=== PATIENT | male | born 1965 | race Caucasian/White ===

== ENCOUNTER 2020-09-06 14:13 | Emergency (ER) | payer MEDICAID, SELFPAY ==
[2020-09-06] VITALS (13 sets, daily range): BP systolic 88–145; BP diastolic 56–91; PULSE 110–145; RESP 14–29; O2SAT 93–97; BMI 27.2
--- NOTE | 2020-09-06 14:53 | ECG_ITS ---
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 Measurements Intervals [place] Rate: 145 P: RI: QRS: 24 QRSD: 199 T: 56 QT: 356 QTc: 555 Interpretive Statements ATRIAL FLUTTER WITH RAPID VENTRICULAR RESPONSE INTRAVENTRICULAR CONDUCTION DELAY [130+ ms QRS DURATION] No previous ECG available for comparison Electronically Signed On 09-07-2020 17:41:34 EDGER TECHNICIAN by Melo Emery M.D. [id number] f
--- NOTE | 2020-09-06 14:53 | XR_ITS ---
WS: [id number] Exam: XR chest 1V portable [id number] Date/Time of Exam: 09/06/2020 2:54 PM Reason For Exam: dyspnea/cough Comparison 08/15/2006. Findings: The lungs are clear and fully expanded. Costophrenic angles are sharp. No infiltrates. Bronchovascula r relief appears normal. Cardiac silhouette is unremarkable. Bony elements are intact. XR/XR chest 1V portable [id number] IMPRESSION: Unremarkable chest radiograph.
[2020-09-06 15:05] LABS: Basophils # 0.1 10^3/uL (0.0-0.1); Basophils % 0.5 %; Eosinophils % 0.2 %; Hematocrit 53.2 % (42.0-52.0); Hemoglobin 18.2 g/dL (11.7-16.6); Lymphocytes # 1.8 10^3/uL (0.8-4.8); Lymphocytes % 16.9 %; Mean Corpuscular HGB Conc 34.2 g/dL (30.0-36.0); Mean Corpuscular Hemoglobin 31.4 pg (28.0-34.0); Mean Corpuscular Volume 91.9 fL (80-94); Mean Platelet Volume 10.3 fL (7.4-10.4); Monocytes # 1.3 10^3/uL (0.2-0.9); Neutrophils # 7.57 10^3/uL (1.8-7.7); Neutrophils % 70.1 %; Nucleated Red Blood Cells % 0 %; Platelet Count 215 10^3/cmm (130-400); Red Blood Count 5.79 10^6/uL (4.1-5.3); Red Cell Distribution Width 12.2 % (12.1-15.1); White Blood Count 10.8 10^3/uL (4.0-10.0)
--- NOTE | 2020-09-06 15:06 | W.ED.ARRPALP ---
Documented by User: George Mills DO 09/07/20 10:59 HPI - Arrhythmia/Palpitations General: Chief Complaint: Arrhythmia/Palpitations Stated Complaint: Back Pain/SOB/dizziness Time Seen by Provider: 09/06/20 14:52 History of Present Illness: HPI narrative: 55-year-old male presents emergency room palpitation racing heart rate. He has had this intermittently for sometimes difficult to get him to give a precise history. He states this time however it seemed more intense and more bothersome. In several years ago patient was treated for atrial fibrillation although when I discussed specific medications with him not sure that is exactly what he had. Does sound like he was on metoprolol at one point. He did have angiogram done. He has not been on any chronic anticoagulants. Denies chest pain at this time states he feels very tired easily fatigued does have some mild orthopnea. MD complaint: rapid heart beat, heart racing and irregular heart beat Onset (ago): unknown Duration: intermittent Severity: moderate Context: occurred during rest Arrhythmia history: atrial fibrillation Associated symptoms: Deny anxiety, cough, diaphoresis, muscle cramps, nausea, paresthesias, pre-syncope, sense of impending doom, short of breath, syncope or vomiting Review of Systems Const: Denies: diaphoresis ENMT: Denies: throat pain, ear or mastoid pain, nasal discharge or nasal congestion Card: Denies: syncope or pre-syncope Resp: Denies: dyspnea, productive cough or non-productive cough GI: Denies: nausea or vomiting : Denies: flank pain, dysuria, urinary frequency or urinary urgency Musc: Denies: muscle cramps Skin/Breast: Denies: rash or pruritus Psych: Denies: anxiety Physical Exam Const: COMMON NORMALS: no acute distress GENERAL APPEARANCE: cooperative and comfortable ORIENTATION/CONSCIOUSNESS: Yes awake, Yes oriented to person, Yes oriented to place and Yes oriented to time HENMT: COMMON NORMALS: normocephalic, atraumatic and hearing grossly normal bilaterally HEAD & SCALP: normocephalic and atraumatic Resp: COMMON NORMALS: normal respiratory effort, No retractions, No use of accessory muscles and clear to auscultation bilaterally AUSCULTATION: clear to auscultation bilaterally Cardio: COMMON NORMALS: No murmurs present (Cardio) RATE: tachycardic RHYTHM: abnormal rhythm irregularly irregular GI: COMMON NORMALS: Soft to palpation and No hepatosplenomegaly present AUSCULTATION: Yes normoactive bowel sounds PALPATION: Yes Soft to palpation, No Tenderness to palpation present (GI), No Guarding due to palpation present (GI) and Yes No hepatosplenomegaly present Extremity: COMMON NORMALS: normal to inspection, capillary refill normal, no clubbing, cyanosis or edema, no calf tenderness and no pedal edema Neuro: SENSORIUM/ORIENTATION: Yes oriented to person, Yes oriented to place and Yes oriented to time Skin: COMMON NORMALS: no rashes or lesions noted GENERAL SKIN EXAM: no rashes or lesions noted Course Vital Signs: Vital signs: Vital Signs Pulse Rate 105 H 09/07/20 02:30 Respiratory Rate 18 09/07/20 02:30 Blood Pressure 139/93 09/07/20 02:30 Pulse Oximetry 98 09/07/20 02:30 MDM - Arrhythmia/Palpitations MDM Narrative: Medical decision making narrative: Patient has history of alcohol use believe he is withdrawing. He had previously been on medications but had stopped them all because of cost. He drinks over a 12 pack a day has not drank for almost 24 hours now. Initial attempts to slow heart rate with Cardizem were unsuccessful he was switched to esmolol and then given Ativan were able to get his heart rate down to less than 110. We are working on transfer care signed over to Dr. Adams at change of shift we are waiting on [facility] to call back to make arrangements for transfer. We do not have any beds available in our ICU so he will have to be transferred. Lab Data: Labs: Lab Results 09/06/20 09/06/20 09/06/20 Range/Units 14:59 14:59 14:59 WBC 10.8 H (4.0-10.0) 10^3/ uL RBC 5.79 H (4.1-5.3) 10^6/u L Hgb 18.2 H (11.7-16.6) g/dL Hct 53.2 H (42.0-52.0) % MCV 91.9 (80-94) fL MCH 31.4 (28.0-34.0) pg MCHC 34.2 (30.0-36.0) g/dL RDW 12.2 (12.1-15.1) % Plt Count 215 (130-400) 10^3/c mm MPV 10.3 (7.4-10.4) fL Neut % (Auto) 70.1 % Lymph % (Auto) 16.9 % [place] % (Auto) 12.0 % Eos % (Auto) 0.2 % Baso % (Auto) 0.5 % Neut # (Auto) 7.57 (1.8-7.7) 10^3/u L Lymph # (Auto) 1.8 (0.8-4.8) 10^3/u L [place] # (Auto) 1.3 H (0.2-0.9) 10^3/u L Eos # (Auto) 0.0 (0.0-0.8) 10^3/u L Baso # (Auto) 0.1 (0.0-0.1) 10^3/u L Nucleated RBC % (a uto) 0 % Nucleated RBCs # 0.0 /100WBC PT (12.1-14.9) SECO NDS INR (0.8-1.2) APTT (23.9-36.7) SECO NDS Sodium 134 L (136-145) mmol/L Potassium 4.6 (3.5-5.1) mmol/L Chloride 95 L (98-107) mmol/L Carbon Dioxide 23 (22-29) mmol/L Anion Gap 20.6 H (5-19) BUN 19 (6-20) mg/dL Creatinine 1.8 H (0.7-1.2) mg/dL GFR Calculation 39.4 L (90-130) mL/min Glucose 103 (65-115) mg/dL Calculated Osmolal ity 281 L (285-295) mOsm/k g Calcium 9.8 (8.5-10.5) mg/dL Total Bilirubin 1.5 H (0.15-1.2) mg/dL AST 50 H (0-40) U/L ALT 89 H (0-41) U/L Alkaline Phosphata se 43 (40-130) IU/L Troponin T Baselin e 96 H (0-15) ng/L Troponin T 120 Min [place]hoe (0-15) ng/L Delta Troponin T (0-10) ABS# Troponin T Hi Sens 6Hr (0-15) ng/L Troponin T Hi Sens 6Hr Delta (0-12) ng/L Total Protein 8.3 (6.6-8.7) g/dL Albumin 5.0 (3.5-5.2) g/dL Globulin 3.3 (1.3-4.6) g/dL TSH (0.27-4.20) uIU/ mL Free T4 (0.82-1.77) ng/d L 09/06/20 09/06/20 09/06/20 Range/Units 14:59 14:59 17:06 WBC (4.0-10.0) 10^3/ uL RBC (4.1-5.3) 10^6/u L Hgb (11.7-16.6) g/dL Hct (42.0-52.0) % MCV (80-94) fL MCH (28.0-34.0) pg MCHC (30.0-36.0) g/dL RDW (12.1-15.1) % Plt Count (130-400) 10^3/c mm MPV (7.4-10.4) fL Neut % (Auto) % Lymph % (Auto) % [place] % (Auto) % Eos % (Auto) % Baso % (Auto) % Neut # (Auto) (1.8-7.7) 10^3/u L Lymph # (Auto) (0.8-4.8) 10^3/u L [place] # (Auto) (0.2-0.9) 10^3/u L Eos # (Auto) (0.0-0.8) 10^3/u L Baso # (Auto) (0.0-0.1) 10^3/u L Nucleated RBC % (a uto) % Nucleated RBCs # /100WBC PT 14.90 (12.1-14.9) SECO NDS INR 1.13 (0.8-1.2) APTT 26.2 (23.9-36.7) SECO NDS Sodium (136-145) mmol/L Potassium (3.5-5.1) mmol/L Chloride (98-107) mmol/L Carbon Dioxide (22-29) mmol/L Anion Gap (5-19) BUN (6-20) mg/dL Creatinine (0.7-1.2) mg/dL GFR Calculation (90-130) mL/min Glucose (65-115) mg/dL Calculated Osmolal ity (285-295) mOsm/k g Calcium (8.5-10.5) mg/dL Total Bilirubin (0.15-1.2) mg/dL AST (0-40) U/L ALT (0-41) U/L Alkaline Phosphata se (40-130) IU/L Troponin T Baselin e (0-15) ng/L Troponin T 120 Min washoe 77.18 H (0-15) ng/L Delta Troponin T -18.82 L (0-10) ABS# Troponin T Hi Sens 6Hr (0-15) ng/L Troponin T Hi Sens 6Hr Delta (0-12) ng/L Total Protein (6.6-8.7) g/dL Albumin (3.5-5.2) g/dL Globulin (1.3-4.6) g/dL TSH 3.36 (0.27-4.20) uIU/ mL Free T4 1.56 (0.82-1.77) ng/d L 09/06/20 Range/Units 20:49 WBC (4.0-10.0) 10^3/ uL RBC (4.1-5.3) 10^6/u L Hgb (11.7-16.6) g/dL Hct (42.0-52.0) % MCV (80-94) fL MCH (28.0-34.0) pg MCHC (30.0-36.0) g/dL RDW (12.1-15.1) % Plt Count (130-400) 10^3/c mm MPV (7.4-10.4) fL Neut % (Auto) % Lymph % (Auto) % [place] % (Auto) % Eos % (Auto) % Baso % (Auto) % Neut # (Auto) (1.8-7.7) 10^3/u L Lymph # (Auto) (0.8-4.8) 10^3/u L [place] # (Auto) (0.2-0.9) 10^3/u L Eos # (Auto) (0.0-0.8) 10^3/u L Baso # (Auto) (0.0-0.1) 10^3/u L Nucleated RBC % (a uto) % Nucleated RBCs # /100WBC PT (12.1-14.9) SECO NDS INR (0.8-1.2) APTT (23.9-36.7) SECO NDS Sodium (136-145) mmol/L Potassium (3.5-5.1) mmol/L Chloride (98-107) mmol/L Carbon Dioxide (22-29) mmol/L Anion Gap (5-19) BUN (6-20) mg/dL Creatinine (0.7-1.2) mg/dL GFR Calculation (90-130) mL/min Glucose (65-115) mg/dL Calculated Osmolal ity (285-295) mOsm/k g Calcium (8.5-10.5) mg/dL Total Bilirubin (0.15-1.2) mg/dL AST (0-40) U/L ALT (0-41) U/L Alkaline Phosphata se (40-130) IU/L Troponin T Baselin e (0-15) ng/L Troponin T 120 Min [place] (0-15) ng/L Delta Troponin T (0-10) ABS# Troponin T Hi Sens 6Hr 63.57 H (0-15) ng/L Troponin T Hi Sens 6Hr Delta -32.43 L (0-12) ng/L Total Protein (6.6-8.7) g/dL Albumin (3.5-5.2) g/dL Globulin (1.3-4.6) g/dL TSH (0.27-4.20) uIU/ mL Free T4 (0.82-1.77) ng/d L EKG Data^: EKG 1: Other EKG comments: Chest X-Ray 09/06/20 14:53 IMPRESSION: Unremarkable chest radiograph. Discharge Plan Discharge Patient Disposition: Xfer Other Clinical Impression: Atrial fibrillation, Chronic alcohol abuse Condition: Stable Coding Level of Care Code ED Full Service Supervisor for Chg Fwd Exam Comprehensive Documented by User: Lida Adams MD 09/07/20 00:40 HPI - Arrhythmia/Palpitations General: Chief Complaint: Arrhythmia/Palpitations Stated Complaint: Back Pain/SOB/dizziness Time Seen by Provider: 09/06/20 14:52 Course Vital Signs: Vital signs: Vital Signs Pulse Rate 105 H 09/07/20 02:30 Respiratory Rate 18 09/07/20 02:30 Blood Pressure 139/93 09/07/20 02:30 Pulse Oximetry 98 09/07/20 02:30 MDM - Arrhythmia/Palpitations MDM Narrative: Medical decision making narrative: Patient presents here with Za. eloy with RVR I took patient over from Dr. Cerrato. Dr. Cerrato's spoke to [facility] for a possible transfer. The physician there called back and is excepting the patient. Patient transferred there due to bed availability as we have no ICU or CSU beds at this time. Patient is stable here and his heart rate is improving. Lab Data: Labs: Lab Results 09/06/20 09/06/20 09/06/20 Range/Units 14:59 14:59 14:59 WBC 10.8 H (4.0-10.0) 10^3/ uL RBC 5.79 H (4.1-5.3) 10^6/u L Hgb 18.2 H (11.7-16.6) g/dL Hct 53.2 H (42.0-52.0) % MCV 91.9 (80-94) fL MCH 31.4 (28.0-34.0) pg MCHC 34.2 (30.0-36.0) g/dL RDW 12.2 (12.1-15.1) % Plt Count 215 (130-400) 10^3/c mm MPV 10.3 (7.4-10.4) fL Neut % (Auto) 70.1 % Lymph % (Auto) 16.9 % [place] % (Auto) 12.0 % Eos % (Auto) 0.2 % Baso % (Auto) 0.5 % Neut # (Auto) 7.57 (1.8-7.7) 10^3/u L Lymph # (Auto) 1.8 (0.8-4.8) 10^3/u L [place] # (Auto) 1.3 H (0.2-0.9) 10^3/u L Eos # (Auto) 0.0 (0.0-0.8) 10^3/u L Baso # (Auto) 0.1 (0.0-0.1) 10^3/u L Nucleated RBC % (a uto) 0 % Nucleated RBCs # 0.0 /100WBC PT (12.1-14.9) SECO NDS INR (0.8-1.2) APTT (23.9-36.7) SECO NDS Sodium 134 L (136-145) mmol/L Potassium 4.6 (3.5-5.1) mmol/L Chloride 95 L (98-107) mmol/L Carbon Dioxide 23 (22-29) mmol/L Anion Gap 20.6 H (5-19) BUN 19 (6-20) mg/dL Creatinine 1.8 H (0.7-1.2) mg/dL GFR Calculation 39.4 L (90-130) mL/min Glucose 103 (65-115) mg/dL Calculated Osmolal ity 281 L (285-295) mOsm/k g Calcium 9.8 (8.5-10.5) mg/dL Total Bilirubin 1.5 H (0.15-1.2) mg/dL AST 50 H (0-40) U/L ALT 89 H (0-41) U/L Alkaline Phosphata se 43 (40-130) IU/L Troponin T Baselin e 96 H (0-15) ng/L Troponin T 120 Min [place] (0-15) ng/L Delta Troponin T (0-10) ABS# Troponin T Hi Sens 6Hr (0-15) ng/L Troponin T Hi Sens 6Hr Delta (0-12) ng/L Total Protein 8.3 (6.6-8.7) g/dL Albumin 5.0 (3.5-5.2) g/dL Globulin 3.3 (1.3-4.6) g/dL TSH (0.27-4.20) uIU/ mL Free T4 (0.82-1.77) ng/d L 09/06/20 09/06/20 09/06/20 Range/Units 14:59 14:59 17:06 WBC (4.0-10.0) 10^3/ uL RBC (4.1-5.3) 10^6/u L Hgb (11.7-16.6) g/dL Hct (42.0-52.0) % MCV (80-94) fL MCH (28.0-34.0) pg MCHC (30.0-36.0) g/dL RDW (12.1-15.1) % Plt Count (130-400) 10^3/c mm MPV (7.4-10.4) fL Neut % (Auto) % Lymph % (Auto) % [place] % (Auto) % Eos % (Auto) % Baso % (Auto) % Neut # (Auto) (1.8-7.7) 10^3/u L Lymph # (Auto) (0.8-4.8) 10^3/u L [place] # (Auto) (0.2-0.9) 10^3/u L Eos # (Auto) (0.0-0.8) 10^3/u L Baso # (Auto) (0.0-0.1) 10^3/u L Nucleated RBC % (a uto) % Nucleated RBCs # /100WBC PT 14.90 (12.1-14.9) SECO NDS INR 1.13 (0.8-1.2) APTT 26.2 (23.9-36.7) SECO NDS Sodium (136-145) mmol/L Potassium (3.5-5.1) mmol/L Chloride (98-107) mmol/L Carbon Dioxide (22-29) mmol/L Anion Gap (5-19) BUN (6-20) mg/dL Creatinine (0.7-1.2) mg/dL GFR Calculation (90-130) mL/min Glucose (65-115) mg/dL Calculated Osmolal ity (285-295) mOsm/k g Calcium (8.5-10.5) mg/dL Total Bilirubin (0.15-1.2) mg/dL AST (0-40) U/L ALT (0-41) U/L Alkaline Phosphata se (40-130) IU/L Troponin T Baselin e (0-15) ng/L Troponin T 120 Min [place] 77.18 H (0-15) ng/L Delta Troponin T -18.82 L (0-10) ABS# Troponin T Hi Sens 6Hr (0-15) ng/L Troponin T Hi Sens 6Hr Delta (0-12) ng/L Total Protein (6.6-8.7) g/dL Albumin (3.5-5.2) g/dL Globulin (1.3-4.6) g/dL TSH 3.36 (0.27-4.20) uIU/ mL Free T4 1.56 (0.82-1.77) ng/d L 09/06/20 Range/Units 20:49 WBC (4.0-10.0) 10^3/ uL RBC (4.1-5.3) 10^6/u L Hgb (11.7-16.6) g/dL Hct (42.0-52.0) % MCV (80-94) fL MCH (28.0-34.0) pg MCHC (30.0-36.0) g/dL RDW (12.1-15.1) % Plt Count (130-400) 10^3/c mm MPV (7.4-10.4) fL Neut % (Auto) % Lymph % (Auto) % [place] % (Auto) % Eos % (Auto) % Baso % (Auto) % Neut # (Auto) (1.8-7.7) 10^3/u L Lymph # (Auto) (0.8-4.8) 10^3/u L [place] # (Auto) (0.2-0.9) 10^3/u L Eos # (Auto) (0.0-0.8) 10^3/u L Baso # (Auto) (0.0-0.1) 10^3/u L Nucleated RBC % (a uto) % Nucleated RBCs # /100WBC PT (12.1-14.9) SECO NDS INR (0.8-1.2) APTT (23.9-36.7) SECO NDS Sodium (136-145) mmol/L Potassium (3.5-5.1) mmol/L Chloride (98-107) mmol/L Carbon Dioxide (22-29) mmol/L Anion Gap (5-19) BUN (6-20) mg/dL Creatinine (0.7-1.2) mg/dL GFR Calculation (90-130) mL/min Glucose (65-115) mg/dL Calculated Osmolal ity (285-295) mOsm/k g Calcium (8.5-10.5) mg/dL Total Bilirubin (0.15-1.2) mg/dL AST (0-40) U/L ALT (0-41) U/L Alkaline Phosphata se (40-130) IU/L Troponin T Baselin e (0-15) ng/L Troponin T 120 Min washoe (0-15) ng/L Delta Troponin T (0-10) ABS# Troponin T Hi Sens 6Hr 63.57 H (0-15) ng/L Troponin T Hi Sens 6Hr Delta -32.43 L (0-12) ng/L Total Protein (6.6-8.7) g/dL Albumin (3.5-5.2) g/dL Globulin (1.3-4.6) g/dL TSH (0.27-4.20) uIU/ mL Free T4 (0.82-1.77) ng/d L EKG Data^: EKG 1: Attestation: I personally reviewed and interpreted this EKG as follows: EKG interpretation date: 09/06/20 EKG interpretation time: 18:54 Interpretation: afib with rvr hr [address] or t wave abnormalities qrs 94 qtc 362 Other EKG comments: Chest X-Ray 09/06/20 14:53
[2020-09-06 15:30] LABS: Alanine Aminotransferase 89 U/L (0-41); Alkaline Phosphatase 43 IU/L (40-130); Aspartate Amino Transferase 50 U/L (0-40); Blood Urea Nitrogen 19 mg/dL (6-20); Calcium 9.8 mg/dL (8.5-10.5); Carbon Dioxide 23 mmol/L (22-29); Chloride 95 mmol/L (98-107); Globulin 3.3 g/dL (1.3-4.6); Glomerular Filtration Rate 39.4 mL/min (90-130); Glucose 103 mg/dL (65-115); Osmolality Calculated 281 mOsm/kg (285-295); Sodium 134 mmol/L (136-145); Total Bilirubin 1.5 mg/dL (0.15-1.2); Total Protein 8.3 g/dL (6.6-8.7); Troponin(5th) Baseline 96 ng/L (0-15)
[2020-09-06 15:31] LABS: Anion Gap 20.6 (5-19); Potassium 4.6 mmol/L (3.5-5.1)
[2020-09-06] MEDS: esmolol drip 2,500 MG/250 ML PREMIX 25.9 MG IV (16:10)
--- NOTE | 2020-09-06 16:13 | PC.NURSE ---
500mcg bolus of Esmolol given via VO from Dr Mills. Given off of IV drip.
--- NOTE | 2020-09-06 16:22 | PC.PHAR ---
Pt has not taken medications in several years. Patient's previous pharmacy and heart care services have no records of previous visits. [facility] shows records from 2012 with medications: metoprolol 50mg 1/2 (25mg) BID, asp 81mg daily, lovastatin 10mg daily, nitro 0.4mg PRN, lisinopril/HCTZ 20-12.5mg daily.
[2020-09-06] MEDS: LORazepam 2 mg/mL INJ 1 mL IVP (16:24)
[2020-09-06 16:43] LABS: Free T4 Free Thyroxine 1.56 ng/dL (0.82-1.77); Thyroid Stimulating Hormone 3.36 uIU/mL (0.27-4.20)
--- NOTE | 2020-09-06 16:53 | ECG_ITS ---
[facility] Test Date: 2020-09-06 Pat Name: Samuel Meier Department: Room: Gender: Male Insurance Account Assistant: : 1965 Requested By: George Duggan Order Number: [id number] Liang MD: Lori Smith M.D. Measurements Intervals [place] Rate: 126 P: TX: QRS: 53 QRSD: 94 T: 61 QT: 288 QTc: 417 Interpretive Statements ATRIAL FLUTTER/TACHYCARDIA WITH RAPID VENTRICULAR RESPONSE MODERATE ST DEPRESSION [0.05+ mV ST DEPRESSION] Compared to ECG 09/06/2020 14:50:10 ST (T wave) deviation now present Atrial fibrillation no longer present Intraventricular conduction delay no longer present Myocardial infarct finding no longer present Electronically Signed On 09-07-2020 6:06:32 ASPHALT BLENDER by Lori Smith M.D. [email or web address] river county hospitalNatera, Inc.[facility].[employer]/store/[id number]
[2020-09-06 17:08] LABS: INR 1.13 (0.8-1.2)
[2020-09-06 17:09] LABS: Partial Thromboplastin Time 26.2 SECONDS (23.9-36.7)
[2020-09-06] MEDS: sodium chloride 0.9% 1,000 ML 999 ML IV ×2 (17:38→23:46)
[2020-09-06 17:52] LABS: Troponin 5 2HR 77.18 ng/L (0-15)
[2020-09-06] MEDS: esmolol drip 2,500 MG/250 ML PREMIX 77.6 MG IV (21:04)
[2020-09-06 21:13] LABS: Troponin 5 6HR 63.57 ng/L (0-15)
[2020-09-07] VITALS (11 sets, daily range): BP systolic 101–146; BP diastolic 64–111; PULSE 105–132; RESP 15–29; O2SAT 94–99
[2020-09-07] MEDS: sodium chloride 0.9% 1,000 ML 999 ML IV (01:20)
--- NOTE | 2020-09-07 07:35 | DCPLANNER ---
late entry - case manager specialist was asked to see patient due to financial reasons. Patient asked case manager specialist about getting help applying for medicaid. logistics account manager spoke with patient and let patient know that there was a person at the hospital named Raymond Desouza that will help patients apply for medicaid. logistics account manager tried to call Deo, unable to reach him at this time, an email was sent to Raymond Desouza with patients name and information asking him to help patient to apply for medicaid. Patient asked if when they called that they spoke with his sister, Vika Shultz, to help fill out paperwork because he gets confused. When case manager specialist sent email to [employer], it was mentioned for him to call the sister and her phone number was given. Sisters phone number is [phone].
== END 2020-09-07 02:32 | disposition other institution (70) ==
PROVIDERS: Family Medicine; Emergency Provider Emergency Medicine
DX: I48.91 Unspecified atrial fibrillation (principal); F10.10 Alcohol abuse, uncomplicated
CPT/HCPCS: 36415; 71045; 80053; 84439; 84443; 84484; 85025; 85610; 85730; 93005; 96365; 96366; 96367; 99285; J2060; J3490; J7030

== ENCOUNTER 2021-02-14 09:53 | Outpatient (CLI) | payer MEDICAID, SELFPAY ==
--- NOTE | 2021-02-14 10:10 | USCV_ITS ---
Samuel Meier Age: 55 Gender: M : 1965 Exam Date: 02/14/2021 10:25 Ordering Phys: Liz Dejesus MANAGER STRATEGIC DEVELOPMENT MANAGER STRATEGIC DEVELOPMENT Technologist: Delilah Ann Exam Location: [facility] [place]_ Indication: Atrial fibrillation BP: 135 / 75 HR: 80 Rhythm: Sinus Technical Quality: Adequate MEASUREMENTS (Male / Female) Normal Values 2D ECHO LV Diastolic Diameter PLAX 4.2 cm 4.2 - 5.9 / 3.9 - 5.3 cm LV Systolic Diameter PLAX 3.4 cm IVS Diastolic Thickness 1.8 cm 0.6 - 1.0 / 0.6 - 0.9 cm IVS Systolic Thickness 2.5 cm LVPW Diastolic Thickness 1.7 cm 0.6 - 1.0 / 0.6 - 0.9 cm LVPW Systolic Thickness 2.1 cm LVOT Diameter 2.0 cm LV Ejection Fraction 2D Teich 40.1 % LV Ejection Fraction MOD 2C 45.5 % LV Ejection Fraction 2C AL 42.9 % LA Diameter 3.7 cm LA Width 3.5 cm LA Height 5.3 cm RA Width 4.5 cm RA Height 5.3 cm Aorta at Sinotubular Diameter 2.5 cm DOPPLER AV Peak Velocity 188.0 cm/s LVOT Peak Velocity 134.0 cm/s AV Area Cont Eq vti 2.4 cm squared AV Area Cont Eq pk 2.3 cm squared MV Peak Velocity 110.0 cm/s MV Area PHT 3.3 cm squared Mitral E to A Ratio 0.8 MV E' Velocity 40.0 cm/s Mitral E to MV E' Ratio 6.1 Mitral E to LV E' Lateral Ratio 4.8 Mitral E to LV E' Septal Ratio 8.7 TR Peak Velocity 239.9 cm/s TR Peak Gradient 23.0 mmHg TR Mean Velocity 186.7 cm/s TR Mean Gradient 14.7 mmHg TR Velocity Time Integral 59.9 cm TV Peak E Velocity 43.0 cm/s Right Atrial Pressure 3.0 mmHg Pulmonary Artery Systolic Pressu 26.0 mmHg PV Peak Velocity 119.0 cm/s RV Acceleration Time 0.0 s RV Ejection Time 0.3 s RV AcT/ET 0.1 FINDINGS Left Ventricle Normal left ventricular size, systolic function and wall thickness, with no regional wall motion abnormalities. Left ventricular ejection fraction is estimated at 65 %. Normal diastolic function. Right Ventricle Normal right ventricular size and systolic function. RVSP could not be calculated due to incomplete tricuspid regurgitation velocity profile. Right Atrium Normal right atrial size. Right atrial pressure estimated at 3 mmHg. Left Atrium Normal left atrial size. Mitral Valve Structurally normal mitral valve. No mitral valve stenosis. No mitral valve regurgitation. Aortic Valve Mildly thickened trileaflet aortic valve. No aortic valve stenosis. Gymf-po-dbjzmhjz aortic valve regurgitation. Tricuspid Valve Structurally normal tricuspid valve. No tricuspid valve stenosis. Trace tricuspid valve regurgitation. Pulmonic Valve Structurally normal pulmonic valve. No pulmonary valve stenosis. No pulmonary valve regurgitation. Pericardium No pericardial effusion. Aorta Normal size aortic root and proximal ascending aorta. Normal- sized inferior vena cava with normal respiratory variation. CONCLUSIONS 1. Normal left ventricular size, systolic function and wall thickness, with no regional wall motion abnormalities. Left ventricular ejection fraction is estimated at 65 %. Normal diastolic function. 2. Normal right ventricular size and systolic function. 3. Pwfm-zv-tphnekrm aortic valve regurgitation. 4. Right atrial pressure estimated at 3 mmHg. 5. No prior similar studies to compare. Lori Smith MD (Electronically Signed) Final Date: 16 February 2021 14:13 S
== END 2021-02-14 09:54 | disposition home or self-care (01) ==
PROVIDERS: PCP Nurse Practitioner Family; Visit Provider Nurse Practitioner Family
DX: I48.19 Other persistent atrial fibrillation (principal); I35.1 Nonrheumatic aortic (valve) insufficiency
CPT/HCPCS: 93306

== ENCOUNTER 2021-03-11 13:12 | Outpatient (CLI) | payer MEDICAID, SELFPAY ==
--- NOTE | 2021-03-11 13:16 | CT_ITS ---
WS: [id number] LDCT LUNG CANCER SCREENING HISTORY: History of Nicotine Dependence TECHNIQUE: Axial imaging performed from the apices to 1 cm below the costophrenic angles. Coronal and sagittal reformats are submitted with axial MIP series. All CT scans at [facility] use at least one of these dose optimization techniques: automated exposure control; mA and/or kV adjustment per patient size (includes targeted exams where dose is matched to clinical indication); or iterativ e reconstruction. DLP: 56.56 mGy.cm DIvol: 1.58 mGy COMPARISON: None available. Diagnostic quality: Satisfactory Lung Nodules: None. Lungs: Emphysema and hyperexpansion. Heart: Normal size. No effusion. Other findings: Calcified mediastinal and LEFT hilar lymph nodes. Very minimal atherosclerosis aorta. Normal size pulmonary artery. CT/CT lung screening [id number] IMPRESSION: LUNG-RADS: 1-Negative FOLLOW UP: 12 Month: Continue annual screening with LDCT OTHER FINDINGS (S MODIFIER): None.
== END 2021-03-11 13:13 | disposition home or self-care (01) ==
LOC: RAD 13:14
PROVIDERS: PCP Nurse Practitioner Family; Visit Provider Internal Medicine Pulmonary Disease
DX: Z12.2 Encounter for screening for malignant neoplasm of respiratory organs (principal); Z87.891 Personal history of nicotine dependence
CPT/HCPCS: 71271

== ENCOUNTER → 2021-04-01 10:27 | Outpatient (BNVA) | payer MEDICAID, SELFPAY | PROVIDERS: PCP Nurse Practitioner Family; Visit Provider Internal Medicine Pulmonary Disease | DX: Z01.812 Encounter for preprocedural laboratory examination (principal); Z20.822 Contact with and (suspected) exposure to COVID-19 | CPT/HCPCS: 87635 ==

== ENCOUNTER 2021-04-06 10:27 | Outpatient (CLI) | payer MEDICAID, SELFPAY ==
--- NOTE | 2021-04-06 11:04 | PFTS_ITS ---
Date of Study:04/06/21 Date of Dictation: MECHANICS: Forced vital capacity (FVC) is normal. Forced expiratory volume in one second (FEV1) is normal. FEV1/FVC is normal. FLOW VOLUME LOOP: Reduced flow at all lung volumes. LUNG VOLUMES: Total lung capacity (TLC) is normal. Residual volume (RV) is increased. DIFFUSING CAPACITY FOR CARBON MONOXIDE: Normal. INTERPRETATION: The prebronchodilator spirometry is consistent with moderate obstruction. The postbronchodilator spirometry is normal. There is an improvement in FEV1 postbronchodilator but this does not reach the cutoff for significant postbronchodilator response. Lung volumes are consistent with air trapping. Gas exchange (DLCO) is normal. MTDD
== END 2021-04-06 10:28 | disposition home or self-care (01) ==
LOC: RT 10:29
PROVIDERS: PCP Nurse Practitioner Family; Visit Provider Internal Medicine Pulmonary Disease
DX: J44.9 Chronic obstructive pulmonary disease, unspecified (principal)
CPT/HCPCS: 94060; 94618; 94726; 94729; J7611

== ENCOUNTER → 2021-05-31 09:41 | Outpatient (BNVA) | payer MEDICAID, SELFPAY | PROVIDERS: PCP Nurse Practitioner Family; Referring Provider Nurse Practitioner Family; Visit Provider Anesthesiology Pain Medicine | DX: Z02.89 Encounter for other administrative examinations (principal); G89.29 Other chronic pain; M19.90 Unspecified osteoarthritis, unspecified site; M54.50 Low back pain, unspecified; M16.0 Bilateral primary osteoarthritis of hip; Z87.891 Personal history of nicotine dependence | CPT/HCPCS: 99204 ==

== ENCOUNTER 2021-05-31 10:49 | Outpatient (CLI) | payer MEDICAID, SELFPAY ==
--- NOTE | 2021-05-31 10:58 | XR_ITS ---
WS: [id number] Exam: XR hip BI 3-4V wo/w pel [id number] Date/Time of Exam: 05/31/2021 11:02 AM Reason For Exam: M19.90 - Unspecified osteoarthritis, unspecified site No fracture or dislocation. Minimal degenerative narrowing of the joint compartments of both hips. Th e pattern is bilaterally symmetrical. Normal bilateral soft tissues. XR/XR hip BI 3-4V wo/w pel [id number] IMPRESSION: 1. Mild DJD of both hips. 2. No fracture or other significant finding.
== END 2021-05-31 10:50 | disposition home or self-care (01) ==
LOC: RAD 10:51
PROVIDERS: PCP Nurse Practitioner Family; Visit Provider Anesthesiology Pain Medicine
DX: M16.0 Bilateral primary osteoarthritis of hip (principal)
CPT/HCPCS: 73522

== ENCOUNTER 2021-06-23 09:12 | Outpatient (CLI) | payer MEDICAID, SELFPAY ==
--- NOTE | 2021-06-23 | CT_ITS ---
WS: [id number] CT LUMBAR SPINE TECHNIQUE: Noncontrast CT of the lumbar spine with coronal and sagittal reformatted images. CLINICAL INFORMATION: BACK PAIN COMPARISON: None. DLP: 1960.[address] scans at [facility] use at least one of these dose optimization techniques: automated e xposure control; mA and/or kV adjustment per patient size (includes targeted exams where dose is matc hed to clinical indication); or iterative reconstruction. FINDINGS: Mild lumbar curve. No acute compression. No high-grade central canal stenosis. L1-L2: Normal. L2-L3: Mild annular bulging. Small left foraminal protrusion with mild left foraminal narrowing. Spin al canal and right foramen are patent. L3-L4: Mild annular bulging. Slight effacement of ventral thecal sac. Mild left and no significant ri ght foraminal narrowing. Moderate facet arthropathy. L4-L5: Mild annular bulging with slight effacement of ventral thecal sac. Tiny shallow central disc b ulging. Narrowing of the subarticular recess bilaterally. Mild central canal stenosis. Foramen are pa tent. Moderate facet arthropathy L5-S1: Shallow central disc bulging with slight contact of the traversing left greater than right S1 nerve roots. Moderate facet arthropathy. Foramen are patent. Vascular calcification. CT/CT lumbar spine wo con* [id number] IMPRESSION: 1. Mild lumbar curve. No acute compression. No high-grade central canal stenos is. 2. Mild central canal stenosis L4-5 with impingement traversing L5 nerve roots bilaterally. 3. Central disc bulge L5-S1 impinges the traversing left greater than right S1 nerve roots. 4. Tiny foraminal protrusions with mild foraminal narrowing at left L2-3 and l eft L3-4.
== END 2021-06-23 09:13 | disposition home or self-care (01) ==
PROVIDERS: PCP Nurse Practitioner Family; Visit Provider Nurse Practitioner Family
DX: M51.26 Other intervertebral disc displacement, lumbar region (principal); M51.27 Other intervertebral disc displacement, lumbosacral region; M48.061 Spinal stenosis, lumbar region without neurogenic claudication
CPT/HCPCS: 72131

== ENCOUNTER → 2021-06-27 09:40 | Outpatient (BNVA) | payer MEDICAID, SELFPAY | PROVIDERS: PCP Nurse Practitioner Family; Visit Provider Anesthesiology Pain Medicine | DX: G89.29 Other chronic pain (principal); M54.50 Low back pain, unspecified; M16.0 Bilateral primary osteoarthritis of hip; I48.20 Chronic atrial fibrillation, unspecified; E78.5 Hyperlipidemia, unspecified; Z87.891 Personal history of nicotine dependence | CPT/HCPCS: 99214 ==

== ENCOUNTER → 2021-07-04 12:16 | Outpatient (BNVA) | payer MEDICAID, SELFPAY | PROVIDERS: PCP Nurse Practitioner Family; Visit Provider Anesthesiology Pain Medicine | DX: M47.816 Spondylosis without myelopathy or radiculopathy, lumbar region (principal) | CPT/HCPCS: 64493; 64494; 64495; J3490 ==

== ENCOUNTER → 2021-07-19 11:12 | Outpatient (BNVA) | payer MEDICAID, SELFPAY | PROVIDERS: PCP Nurse Practitioner Family; Visit Provider Anesthesiology Pain Medicine | DX: G89.29 Other chronic pain (principal); M54.50 Low back pain, unspecified; M16.0 Bilateral primary osteoarthritis of hip; I50.20 Unspecified systolic (congestive) heart failure; J44.9 Chronic obstructive pulmonary disease, unspecified | CPT/HCPCS: 99215 ==

== ENCOUNTER → 2021-07-27 12:13 | Outpatient (BNVA) | payer MEDICAID, SELFPAY | PROVIDERS: PCP Nurse Practitioner Family; Visit Provider Anesthesiology Pain Medicine | DX: G89.29 Other chronic pain (principal); Z87.891 Personal history of nicotine dependence; M47.816 Spondylosis without myelopathy or radiculopathy, lumbar region | CPT/HCPCS: 64635; 64636; J1030 ==

== ENCOUNTER → 2021-08-23 12:44 | Outpatient (BNVA) | payer MEDICAID, SELFPAY | PROVIDERS: PCP Nurse Practitioner Family; Visit Provider Anesthesiology Pain Medicine | DX: G89.29 Other chronic pain (principal); Z87.891 Personal history of nicotine dependence; M47.816 Spondylosis without myelopathy or radiculopathy, lumbar region | CPT/HCPCS: 64635; 64636; J1030 ==

== ENCOUNTER → 2021-09-06 10:28 | Outpatient (BNVA) | payer MEDICAID, SELFPAY | PROVIDERS: PCP Nurse Practitioner Family; Visit Provider Anesthesiology Pain Medicine | DX: G89.29 Other chronic pain (principal); M54.50 Low back pain, unspecified; M16.0 Bilateral primary osteoarthritis of hip; I50.20 Unspecified systolic (congestive) heart failure; J44.9 Chronic obstructive pulmonary disease, unspecified; Z87.891 Personal history of nicotine dependence | CPT/HCPCS: 99214 ==

== ENCOUNTER → 2021-11-10 09:46 | Outpatient (BNVA) | payer MEDICAID, SELFPAY | PROVIDERS: PCP Nurse Practitioner Family; Visit Provider Internal Medicine Pulmonary Disease | DX: R06.81 Apnea, not elsewhere classified (principal); I25.10 Atherosclerotic heart disease of native coronary artery without angina pectoris; I48.20 Chronic atrial fibrillation, unspecified; I50.20 Unspecified systolic (congestive) heart failure; J44.9 Chronic obstructive pulmonary disease, unspecified; R23.2 Flushing; Z87.891 Personal history of nicotine dependence; I10 Essential (primary) hypertension; E78.5 Hyperlipidemia, unspecified | CPT/HCPCS: 99214 ==

== ENCOUNTER 2021-11-29 13:17 | Outpatient (CLI) | payer MEDICAID, SELFPAY ==
--- NOTE | 2021-11-29 13:24 | CT_ITS ---
WS: [id number] LDCT LUNG CANCER SCREENING HISTORY: annual lung screening TECHNIQUE: Axial imaging performed from the apices to 1 cm below the costophrenic angles. Coronal and sagittal reformats are submitted with axial MIP series. All CT scans at [facility] use at least one of these dose optimization techniques: automated exposure control; mA and/or kV adjustment per patient size (includes targeted exams where dose is matched to clinical indication); or iterativ e reconstruction. DLP: 83.90 mGy.cm DIvol: Mean CTDIvol: 1.60 (mGy) COMPARISON: 03/11/2021 Diagnostic quality: Satisfactory Lung Nodules: No suspicious nodules or mass. No endobronchial lesions. Mild pulmonary hyperexpansion and emphysema. Heart: Normal size heart. No effusion. There are a few scattered coronary artery calcifications. Other findings: Benign calcified subcarinal and LEFT hilar lymph nodes. Normal size pulmonary artery. Minimal atherosclerosis aorta. No adenopathy. Artifact causing beam hardening in the soft tissues po sterior to the LEFT scapula. No destructive rib lesions. No adrenal mass. Visualized upper abdomen is negative. CT/CT lung screening [id number] IMPRESSION: LUNG-RADS: 1-Negative FOLLOW UP: 12 Month: Continue annual screening with LDCT OTHER FINDINGS (S MODIFIER): None.
== END 2021-11-29 13:18 | disposition home or self-care (01) ==
LOC: RAD 13:18
PROVIDERS: PCP Nurse Practitioner Family; Visit Provider Internal Medicine Pulmonary Disease
DX: Z12.2 Encounter for screening for malignant neoplasm of respiratory organs (principal); Z87.891 Personal history of nicotine dependence; G89.29 Other chronic pain; M51.17 Intervertebral disc disorders with radiculopathy, lumbosacral region; M16.0 Bilateral primary osteoarthritis of hip; I50.20 Unspecified systolic (congestive) heart failure; J44.9 Chronic obstructive pulmonary disease, unspecified
CPT/HCPCS: 71271; 99214

== ENCOUNTER → 2021-12-08 14:36 | Outpatient (BNVA) | payer MEDICAID, SELFPAY | PROVIDERS: PCP Nurse Practitioner Family; Visit Provider Anesthesiology Pain Medicine | DX: G89.29 Other chronic pain (principal); M54.16 Radiculopathy, lumbar region; Z87.891 Personal history of nicotine dependence | CPT/HCPCS: 64483; 64484; J1100; J3490 ==

== ENCOUNTER → 2021-12-22 10:27 | Outpatient (BNVA) | payer MEDICAID, SELFPAY | PROVIDERS: PCP Nurse Practitioner Family; Visit Provider Anesthesiology Pain Medicine | DX: G89.29 Other chronic pain (principal); M51.17 Intervertebral disc disorders with radiculopathy, lumbosacral region; M16.0 Bilateral primary osteoarthritis of hip; Z87.891 Personal history of nicotine dependence | CPT/HCPCS: 99213 ==

== ENCOUNTER → 2022-01-30 08:41 | Outpatient (BNVA) | payer MEDICAID, SELFPAY | PROVIDERS: PCP Nurse Practitioner Family; Visit Provider Anesthesiology Pain Medicine | DX: G89.29 Other chronic pain (principal); M51.17 Intervertebral disc disorders with radiculopathy, lumbosacral region; M16.0 Bilateral primary osteoarthritis of hip; I50.20 Unspecified systolic (congestive) heart failure; J44.9 Chronic obstructive pulmonary disease, unspecified; Z87.891 Personal history of nicotine dependence | CPT/HCPCS: 99214 ==

== ENCOUNTER → 2022-02-08 15:29 | Outpatient (BNVA) | payer MEDICAID, SELFPAY | PROVIDERS: PCP Nurse Practitioner Family; Visit Provider Internal Medicine Cardiovascular Disease | DX: I48.20 Chronic atrial fibrillation, unspecified (principal); I25.10 Atherosclerotic heart disease of native coronary artery without angina pectoris; I11.0 Hypertensive heart disease with heart failure; I50.32 Chronic diastolic (congestive) heart failure; I25.2 Old myocardial infarction; Z87.891 Personal history of nicotine dependence | CPT/HCPCS: 99213; 99214 ==

== ENCOUNTER 2022-03-07 09:23 | Emergency (ER) | payer MEDICAID, SELFPAY ==
[2022-03-07] VITALS (10 sets, daily range): BP systolic 109–139; BP diastolic 65–91; PULSE 78–91; RESP 15–23; TEMP 37.1; O2SAT 94–98; BMI 33.0
--- NOTE | 2022-03-07 09:40 | XRR_ITS ---
PROCEDURE INFORMATION: Exam: XR Chest Exam date and time: 03/07/2022 9:45 AM Age: 56 years old Clinical indication: Cough and dyspnea and shortness of breath; Additional info: Dyspnea/cough TECHNIQUE: Imaging protocol: Radiologic exam of the chest. Views: 1 view. COMPARISON: CR XR chest 1V portable [id number] 09/06/2020 2:51 PM FINDINGS: Lungs: There are normal lung volumes. Right basilar/costophrenic angle region airspace opacity is seen. This may represent pneumonia. Recommend follow-up until complete resolution to exclude underlying pathology. Unchanged 3 mm left upper lobe small metallic density is seen. Pleural spaces: There are no pleural effusions or pneumothorax. Heart/Mediastinum: The heart size is normal. The mediastinal contour is normal. The trachea is in the midline. Bones/joints: No acute abnormalities. Notes: Chest CT may be performed, if there is further clinical concern. XR/XR chest 1V portable [id number] IMPRESSION: Right basilar/costophrenic angle region airspace opacity. This may represent pneumonia. Recommend follow-up until complete resolution to exclude underlying pathology.
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
--- NOTE | 2022-03-07 10:01 | PC.PHAR ---
pt states he takes care of his own medications-pt states he never got the stiolto respimat written on 11/30/21-pt states he ran out of his spiriva handihaler about one to two months ago states just been using the combivent respimat-pt states he ran out of quetiapine 50mg about 3-4 days ago rx filled 02/13/22 14d/s-
[2022-03-07 10:19] LABS: Basophils % 0.2 %; Eosinophils % 0.2 %; Hematocrit 42.3 % (42.0-52.0); Hemoglobin 13.8 g/dL (11.7-16.6); Lymphocytes # 1.5 10^3/uL (0.8-4.8); Lymphocytes % 11.7 %; Mean Corpuscular HGB Conc 32.6 g/dL (30.0-36.0); Mean Corpuscular Hemoglobin 28.2 pg (28.0-34.0); Mean Corpuscular Volume 86.3 fl (80-94); Mean Platelet Volume 10.4 fL (7.4-10.4); Monocytes # 1.1 10^3/uL (0.2-0.9); Monocytes % 8.2 %; Neutrophils # 10.32 10^3/uL (1.8-7.7); Neutrophils % 79.2 %; Nucleated Red Blood Cells % 0 %; Platelet Count 358 10^3/cmm (130-400); Red Cell Distribution Width 12.4 % (12.1-15.1)
[2022-03-07 10:39] LABS: Alanine Aminotransferase 17 U/L (0-41); Albumin Level 3.9 g/dL (3.5-5.2); Alkaline Phosphatase 61 U/L (40-130); Aspartate Amino Transferase 11 U/L (0-40); Blood Urea Nitrogen 11 mg/dL (6-20); Calcium 9.1 mg/dL (8.5-10.5); Carbon Dioxide 23 mmol/L (22-29); Chloride 100 mmol/L (98-107); Globulin 3.8 g/dL (1.3-4.6); Glomerular Filtration Rate 116.7 mL/min (90-130); Glucose 103 mg/dL (65-115); Osmolality Calculated 282 mOsm/kg (285-295); Sodium 136 mmol/L (136-145); Total Bilirubin 0.8 mg/dL (0.15-1.2); Total Protein 7.7 g/dL (6.6-8.7)
[2022-03-07 11:14] LABS: INR 1.41 (0.8-1.2)
[2022-03-07 11:15] LABS: Partial Thromboplastin Time 44.2 SECONDS (23.9-36.7)
--- NOTE | 2022-03-08 10:26 | DCPLANNER ---
Addendum entered by Besty Berkowitz 03/17/22 14:18: Patient had a follow up appointment scheduled with pulmonology - patient did attend appointment. Original Note: supply and distribution manager had message to schedule a follow up appointment for patient with pulmonology. supply and distribution manager sent patients information to the front office staff at [facility]. Patients information will be printed and reviewed. Clinic will call patient with appointment information.
== END 2022-03-07 10:54 | disposition home or self-care (01) ==
PROVIDERS: Emergency Provider Family Medicine; PCP Nurse Practitioner Family
DX: J18.9 Pneumonia, unspecified organism (principal); R04.2 Hemoptysis; I48.91 Unspecified atrial fibrillation; Z79.01 Long term (current) use of anticoagulants; Z79.82 Long term (current) use of aspirin; I10 Essential (primary) hypertension; E78.5 Hyperlipidemia, unspecified; Z87.891 Personal history of nicotine dependence
CPT/HCPCS: 36415; 71045; 80053; 85025; 85610; 85730; 99284

== ENCOUNTER → 2022-03-16 10:31 | Outpatient (BNVA) | payer MEDICAID, SELFPAY | PROVIDERS: PCP Nurse Practitioner Family; Visit Provider Internal Medicine Pulmonary Disease | DX: R06.02 Shortness of breath (principal); Z09 Encounter for follow-up examination after completed treatment for conditions other than malignant neoplasm; J44.9 Chronic obstructive pulmonary disease, unspecified; Z87.891 Personal history of nicotine dependence; I50.20 Unspecified systolic (congestive) heart failure; I48.91 Unspecified atrial fibrillation; I25.10 Atherosclerotic heart disease of native coronary artery without angina pectoris; Z87.01 Personal history of pneumonia (recurrent) | CPT/HCPCS: 99214 ==

== ENCOUNTER 2022-04-06 07:40 | Emergency (ER) | payer MEDICAID, SELFPAY ==
[2022-04-06] VITALS (15 sets, daily range): BP systolic 107–128; BP diastolic 61–79; PULSE 81–109; RESP 18–35; TEMP 37.2; O2SAT 91–93; BMI 31.5
--- NOTE | 2022-04-06 07:44 | XR_ITS ---
WS: [id number] Portable AP upright chest, 04/06/2022 Clinical Data: dyspnea/cough Comparison: PA and lateral chest, 03/24/2022. Findings: There is a right lung opacity involving the middle and lower lobes which is dense. This may represent a combination of effusion and atelectasis and pneumonia. The heart size is larger because of a poor inspiratory effort. The left lung is clear. Monitor leads are on the chest wall. XR/XR chest 1V portable [id number] Impression: 1. Dense right lung opacity involving the middle and lower lobes which is proba jared effusion, atelectasis and pneumonia. 2. Increase in heart size.
--- NOTE | 2022-04-06 07:44 | ECG_ITS ---
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 Measurements Intervals [place] Rate: 104 P: 43 MA: 167 QRS: -4 QRSD: 99 T: 4 QT: 307 QTc: 404 Interpretive Statements SINUS TACHYCARDIA POSSIBLE LEFT ATRIAL ENLARGEMENT [-0.1mV P-WAVE IN V1/V2] POSSIBLE INFERIOR MYOCARDIAL INFARCTION , PROBABLY OLD [30 ms Q WAVE IN II/aVF] ABNORMAL RHYTHM ECG Compared to ECG 09/06/2020 18:54:10 Myocardial infarct finding now present Atrial flutter no longer present ST (T wave) deviation no longer present Electronically Signed On 04-06-2022 20:42:38 CDT by Fatmata Moreno M.D. [email or web address]
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
--- NOTE | 2022-04-06 07:57 | CT_ITS ---
WS: [id number] CTA OF THE CHEST WITH PULMONARY EMBOLISM PROTOCOL TECHNIQUE: High-resolution contrast enhanced CTA of the chest with coronal and sagittal reformatted i mages with pulmonary embolism protocol. MIP images are also reviewed. CLINICAL INFORMATION: severe dyspnea, tachycardia, hypoxia COMPARISON: None. DLP: 876.[address] scans at [facility] use at least one of these dose optimization techniques: automated e xposure control; mA and/or kV adjustment per patient size (includes targeted exams where dose is matc hed to clinical indication); or iterative reconstruction. FINDINGS: Proximal main pulmonary arteries are normal. Segmental and subsegmental pulmonary arteries not well e valuated due to suboptimal contrast bolus. Normal caliber thoracic aorta. Numerous anterior mediastin al and paratracheal lymph nodes nonspecific but may be reactive. Small moderate circumferential RIGHT pleural effusion with compressive atelectasis in the RIGHT lower lobe and RIGHT middle lobe. Associa francy patchy infiltrates. Pleural fluid appears loculated with loculated pleural fluid along the RIGHT pleural fissures. Air bronchograms RIGHT lower lobe with consolidation. Adrenal glands are normal. Normal spleen. Normal GE junction. Hepatomegaly. Mild thoracic curve. Mild thoracic kyphosis. CT/CT angio chest PE protcl [id number] IMPRESSION: 1. Suboptimal contrast opacification. No evidence of proximal PE. Distal pulmo nary arteries not well evaluated. 2. Small to moderate circumferential RIGHT pleural effusion appears loculated with loculated pleural fluid peripherally about the RIGHT lung, along the fissu res, and anterior mediastinum. 3. Compressive atelectasis in the RIGHT lower lobe and RIGHT middle lobe with consolidation compatible with pneumonia. Associated patchy infiltrates and air bronchograms. Recommend follow-up to resolution to exclude malignancy. 4. Trace LEFT pleural fluid. Notified George Mills DO at 04/06/2022 9:04 AM.
[2022-04-06 08:15] LABS: Basophils # 0.1 10^3/uL (0.0-0.1); Basophils % 0.2 %; Eosinophils % 0.1 %; Hematocrit 42.3 % (42.0-52.0); Hemoglobin 13.6 g/dL (11.7-16.6); Lymphocytes # 1.4 10^3/uL (0.8-4.8); Mean Corpuscular HGB Conc 32.2 g/dL (30.0-36.0); Mean Corpuscular Hemoglobin 26.8 pg (28.0-34.0); Mean Corpuscular Volume 83.3 fl (80-94); Mean Platelet Volume 10.6 fL (7.4-10.4); Monocytes # 1.5 10^3/uL (0.2-0.9); Monocytes % 6.4 %; Neutrophils # 20.92 10^3/uL (1.8-7.7); Neutrophils % 86.7 %; Nucleated Red Blood Cells % 0 %; Platelet Count 544 10^3/cmm (130-400); Red Blood Count 5.08 10^6/uL (4.1-5.3); Red Cell Distribution Width 12.6 % (12.1-15.1); White Blood Count 24.1 10^3/uL (4.0-10.0)
[2022-04-06] MEDS: ipratropium-albuterol 3 mL Neb INHALATION (08:31)
[2022-04-06] MEDS: iohexol 350 mg/mL 100 mL Btl IV (08:35)
[2022-04-06 08:38] LABS: Blood Urea Nitrogen 14 mg/dL (6-20); Calcium 9.1 mg/dL (8.5-10.5); Carbon Dioxide 19 mmol/L (22-29); Chloride 93 mmol/L (98-107); Creatinine Clr Calc Pharmacy 108.5207; Glomerular Filtration Rate 87.3 mL/min (90-130); Glucose 103 mg/dL (65-115); Osmolality Calculated 265 mOsm/kg (285-295); Sodium 127 mmol/L (136-145)
[2022-04-06 08:39] LABS: Troponin(5th) Baseline 9 ng/L (0-15)
[2022-04-06 08:47] LABS: Anion Gap 19.2 (5-19); Potassium 4.2 mmol/L (3.5-5.1)
[2022-04-06 09:24] LABS: Lactic Sepsis W/Reflex 1.3 mmol/L (0.5-2.2)
--- NOTE | 2022-04-06 09:44 | ECG_ITS ---
[facility] Test Date: 2022-04-06 Pat Name: Samuel Meier Department: Room: Gender: Male Clinic Scheduler: : 1965 Requested By: George Duggan Order Number: [id number] Liang MD: Fatmata Moreno M.D. Measurements Intervals [place] Rate: 97 P: 42 UT: 172 QRS: -7 QRSD: 102 T: 11 QT: 321 QTc: 408 Interpretive Statements SINUS RHYTHM POSSIBLE LEFT ATRIAL ENLARGEMENT [-0.1mV P-WAVE IN V1/V2] INFERIOR MYOCARDIAL INFARCTION , PROBABLY OLD [40+ ms Q WAVE AND/OR ST/T ABNORMALITY IN II/aVF] Compared to ECG 04/06/2022 07:59:26 Sinus tachycardia no longer present Myocardial infarct finding still present Electronically Signed On 04-06-2022 20:50:00 CDT by Fatmata Moreno M.D. [id number]
[2022-04-06] MEDS: ondansetron 2 mg/ML SDV 2 mL 4 MG IVP (10:02)
[2022-04-06] MEDS: morphine 4 mg/mL SDV 1 mL IVP ×2 (10:03→12:53)
[2022-04-06 10:05] LABS: Troponin 5 2HR 7.95 ng/L (0-15)
[2022-04-06 10:49] LABS: Troponin 5 2HR Delta -1.05 ABS# (0-10)
[2022-04-06] MEDS: piperacillin-tazobactam 3.375 GM in sodium chloride 0.9% (plus) 50 ML IV (11:02)
[2022-04-06 14:14] LABS: Troponin 5 6HR 6.73 ng/L (0-15)
[2022-04-06 14:16] LABS: Troponin 5 6HR Delta -2.27 ng/L (0-12)
[2022-04-06] MEDS: levofloxacin-dextrose 5 % 750 MG/150 ML PREMIX 100 MG IV (15:06)
--- NOTE | 2022-04-06 15:30 | PC.NURSE ---
Report called to MARVIN Perez
== END 2022-04-06 16:16 | disposition short-term general hospital (02) ==
PROVIDERS: Emergency Provider Family Medicine; PCP Nurse Practitioner Family
DX: J86.9 Pyothorax without fistula (principal); I08.0 Rheumatic disorders of both mitral and aortic valves; I11.0 Hypertensive heart disease with heart failure; I50.9 Heart failure, unspecified; I25.10 Atherosclerotic heart disease of native coronary artery without angina pectoris; I48.91 Unspecified atrial fibrillation; J44.0 Chronic obstructive pulmonary disease with (acute) lower respiratory infection; J18.9 Pneumonia, unspecified organism; J44.1 Chronic obstructive pulmonary disease with (acute) exacerbation; Z79.01 Long term (current) use of anticoagulants; Z79.82 Long term (current) use of aspirin; E78.5 Hyperlipidemia, unspecified; Z87.891 Personal history of nicotine dependence
CPT/HCPCS: 36415; 71045; 71275; 80048; 83605; 84484; 85025; 87040; 93005; 94640; 96365; 96367; 96375; 96376; 99285; J1956; J2270; J2405; J2543; J3370; J7040; Q9967

== ENCOUNTER → 2022-04-21 12:27 | Outpatient (BNVA) | payer MEDICAID, SELFPAY | PROVIDERS: PCP Nurse Practitioner Family; Visit Provider Internal Medicine Pulmonary Disease | DX: J90 Pleural effusion, not elsewhere classified (principal); R06.02 Shortness of breath; J44.9 Chronic obstructive pulmonary disease, unspecified; Z87.891 Personal history of nicotine dependence; I50.9 Heart failure, unspecified; I48.91 Unspecified atrial fibrillation; I25.10 Atherosclerotic heart disease of native coronary artery without angina pectoris; R23.2 Flushing; F10.11 Alcohol abuse, in remission; I25.2 Old myocardial infarction | CPT/HCPCS: 71046; 99214 ==

== ENCOUNTER → 2022-05-01 08:41 | Outpatient (BNVA) | payer MEDICAID, SELFPAY | PROVIDERS: PCP Nurse Practitioner Family; Visit Provider Anesthesiology Pain Medicine | DX: G89.29 Other chronic pain (principal); M51.17 Intervertebral disc disorders with radiculopathy, lumbosacral region; M16.0 Bilateral primary osteoarthritis of hip; I50.9 Heart failure, unspecified; J44.9 Chronic obstructive pulmonary disease, unspecified; Z87.891 Personal history of nicotine dependence | CPT/HCPCS: 99214 ==

== ENCOUNTER → 2022-07-03 10:32 | Outpatient (BNVA) | payer MEDICAID, SELFPAY | PROVIDERS: PCP Nurse Practitioner Family; Visit Provider Anesthesiology Pain Medicine | DX: M17.11 Unilateral primary osteoarthritis, right knee (principal); G89.29 Other chronic pain; M51.17 Intervertebral disc disorders with radiculopathy, lumbosacral region; M16.0 Bilateral primary osteoarthritis of hip; I50.9 Heart failure, unspecified; J44.9 Chronic obstructive pulmonary disease, unspecified | CPT/HCPCS: 73560; 99214 ==

== ENCOUNTER → 2022-07-18 12:57 | Outpatient (BNVA) | payer MEDICAID, SELFPAY | PROVIDERS: PCP Nurse Practitioner Family; Visit Provider Internal Medicine Pulmonary Disease | DX: R06.02 Shortness of breath (principal); J90 Pleural effusion, not elsewhere classified; J44.9 Chronic obstructive pulmonary disease, unspecified; Z87.891 Personal history of nicotine dependence; I50.9 Heart failure, unspecified; I48.91 Unspecified atrial fibrillation; I25.10 Atherosclerotic heart disease of native coronary artery without angina pectoris; R23.2 Flushing; J86.9 Pyothorax without fistula; Z79.01 Long term (current) use of anticoagulants | CPT/HCPCS: 99214 ==

== ENCOUNTER → 2022-07-24 13:00 | Outpatient (BNVA) | payer MEDICAID, SELFPAY | PROVIDERS: PCP Nurse Practitioner Family; Visit Provider Internal Medicine Cardiovascular Disease | DX: J86.9 Pyothorax without fistula (principal); M54.9 Dorsalgia, unspecified; G89.29 Other chronic pain; M16.0 Bilateral primary osteoarthritis of hip; I08.0 Rheumatic disorders of both mitral and aortic valves; I10 Essential (primary) hypertension; E78.5 Hyperlipidemia, unspecified; I48.91 Unspecified atrial fibrillation; Z87.891 Personal history of nicotine dependence; J44.9 Chronic obstructive pulmonary disease, unspecified; Z79.01 Long term (current) use of anticoagulants | CPT/HCPCS: 99213 ==

== ENCOUNTER → 2022-07-31 09:19 | Outpatient (BNVA) | payer MEDICAID, SELFPAY | PROVIDERS: PCP Nurse Practitioner Family; Visit Provider Anesthesiology Pain Medicine | DX: G89.29 Other chronic pain (principal); M51.17 Intervertebral disc disorders with radiculopathy, lumbosacral region; M25.561 Pain in right knee; M25.562 Pain in left knee; M16.0 Bilateral primary osteoarthritis of hip; I50.9 Heart failure, unspecified; J44.9 Chronic obstructive pulmonary disease, unspecified | CPT/HCPCS: 99213; 99214 ==

== ENCOUNTER → 2022-08-22 13:34 | Outpatient (BNVA) | payer MEDICAID, SELFPAY | PROVIDERS: PCP Nurse Practitioner Family; Visit Provider Anesthesiology Pain Medicine | DX: M17.0 Bilateral primary osteoarthritis of knee (principal) | CPT/HCPCS: 20610 ==

== ENCOUNTER → 2022-09-07 08:51 | Outpatient (BNVA) | payer MEDICAID, SELFPAY | PROVIDERS: PCP Nurse Practitioner Family; Visit Provider Anesthesiology Pain Medicine | DX: G89.29 Other chronic pain (principal); M16.0 Bilateral primary osteoarthritis of hip | CPT/HCPCS: 99214 ==

== ENCOUNTER 2022-09-27 08:20 | Outpatient (CLI) | payer MEDICAID, SELFPAY ==
[2022-09-27 09:15] VITALS: PULSE 70; RESP 18
[2022-09-27] MEDS: albuterol 2.5 mg/3 mL Neb INHALATION (09:15)
[2022-09-27 09:41] VITALS: BP 142/99
== END 2022-09-27 08:21 | disposition home or self-care (01) ==
LOC: RT 08:22
PROVIDERS: PCP Nurse Practitioner Family; Visit Provider Internal Medicine Pulmonary Disease
DX: R06.02 Shortness of breath (principal); J44.9 Chronic obstructive pulmonary disease, unspecified; Z87.891 Personal history of nicotine dependence; I50.9 Heart failure, unspecified; I25.10 Atherosclerotic heart disease of native coronary artery without angina pectoris
CPT/HCPCS: 94060; 94618; 94726; 94729; 99214; J7613

== ENCOUNTER → 2022-10-02 08:47 | Outpatient (BNVA) | payer MEDICAID, SELFPAY | PROVIDERS: PCP Nurse Practitioner Family; Referring Provider Anesthesiology Pain Medicine; Visit Provider Student in an Organized Health Care Education/Training Program | DX: S83.207A Unspecified tear of unspecified meniscus, current injury, left knee, initial encounter (principal); X58.XXXA Exposure to other specified factors, initial encounter | CPT/HCPCS: 73560; 73565; 99204 ==

== ENCOUNTER → 2022-10-23 11:06 | Outpatient (BNVA) | payer MEDICAID, SELFPAY | PROVIDERS: PCP Nurse Practitioner Family; Visit Provider Anesthesiology Pain Medicine | DX: G89.29 Other chronic pain (principal); M54.50 Low back pain, unspecified; M16.0 Bilateral primary osteoarthritis of hip | CPT/HCPCS: 99214 ==

== ENCOUNTER 2022-10-24 08:29 | Outpatient (CLI) | payer MEDICAID, SELFPAY ==
--- NOTE | 2022-10-24 08:45 | MR_ITS ---
WS: [id number] MRI LEFT KNEE HISTORY: Posterior LEFT knee and patella pain for 5 years. COMPARISON: Radiograph 10/02/2022 Anterior cruciate ligament: Intact. Posterior cruciate ligament: Intact. Medial collateral ligament: Intact. Posterior lateral corner structures: Intact. Medial menisci: Mild intrasubstance degeneration in the posterior horn. There is some very mild incre ased signal which extends into the meniscal root. No definite tear is identified. There is no definit e extension to the articular surfaces. Lateral meniscus: Intact. Normal signal, size and shape. Extensor mechanism: Distal quadriceps tendon and patellar tendons are intact. Fluid and soft tissue: No joint effusion. Tiny Conway's cyst. Osseous and articular structures: Patellofemoral compartment: Normal. Medial compartment: Very minimal narrowing of the joint spaces. Cartilage is intact. No marrow edema or fracture. Lateral compartment: No significant narrowing of the lateral compartment. Cartilage is intact. Small subchondral cystic changes are noted in the posterior tibial plateau. No marrow edema. MR/MR knee LT wo con* [id number] IMPRESSION: 1. No significant joint effusion. 2. Mild increased signal in the posterior horn medial meniscus. No definite te ar is identified. Slightly more increased signal towards the meniscal root but cannot confirm tear. 3. Very tiny Conway's cyst. 4. Subchondral bone cyst in the posterior lateral tibial plateau.
== END 2022-10-24 08:30 | disposition home or self-care (01) ==
LOC: RAD 08:31
PROVIDERS: PCP Nurse Practitioner Family; Visit Provider Student in an Organized Health Care Education/Training Program
DX: M25.569 Pain in unspecified knee (principal); M71.22 Synovial cyst of popliteal space [Baker], left knee; M85.48 Solitary bone cyst, other site
CPT/HCPCS: 73721

== ENCOUNTER → 2022-11-09 13:59 | Outpatient (BNVA) | payer MEDICAID, SELFPAY | PROVIDERS: PCP Nurse Practitioner Family; Visit Provider Student in an Organized Health Care Education/Training Program | DX: S83.207A Unspecified tear of unspecified meniscus, current injury, left knee, initial encounter (principal); X58.XXXA Exposure to other specified factors, initial encounter; Z01.818 Encounter for other preprocedural examination | CPT/HCPCS: 99214 ==

== ENCOUNTER 2022-11-10 08:50 | Outpatient (CLI) | payer MEDICAID, SELFPAY ==
[2022-11-10 09:29] LABS: Basophils % 0.4 %; Eosinophils # 0.2 10^3/uL (0.0-0.8); Eosinophils % 2.6 %; Hematocrit 47.7 % (42.0-52.0); Hemoglobin 15.2 g/dL (11.7-16.6); Lymphocytes # 1.9 10^3/uL (0.8-4.8); Lymphocytes % 26.1 %; Mean Corpuscular HGB Conc 31.9 g/dL (30.0-36.0); Mean Corpuscular Hemoglobin 27.4 pg (28.0-34.0); Mean Corpuscular Volume 86.1 fl (80-94); Mean Platelet Volume 10.1 fL (7.4-10.4); Monocytes # 0.6 10^3/uL (0.2-0.9); Monocytes % 8.5 %; Neutrophils # 4.55 10^3/uL (1.8-7.7); Neutrophils % 62.1 %; Nucleated Red Blood Cells % 0 %; Platelet Count 278 10^3/cmm (130-400); Red Blood Count 5.54 10^6/uL (4.1-5.3); Red Cell Distribution Width 13.4 % (12.1-15.1); White Blood Count 7.3 10^3/uL (4.0-10.0)
[2022-11-10 09:45] LABS: Anion Gap 16.7 (5-19); Blood Urea Nitrogen 12 mg/dL (6-20); Calcium 9.2 mg/dL (8.5-10.5); Carbon Dioxide 21 mmol/L (22-29); Chloride 102 mmol/L (98-107); Glucose 109 mg/dL (65-115); Osmolality Calculated 280 mOsm/kg (285-295); Potassium 4.7 mmol/L (3.5-5.1); Sodium 135 mmol/L (136-145)
== END 2022-11-10 08:51 | disposition home or self-care (01) ==
LOC: LAB 08:53
PROVIDERS: PCP Nurse Practitioner Family; Visit Provider Student in an Organized Health Care Education/Training Program
DX: Z01.812 Encounter for preprocedural laboratory examination (principal); Z79.899 Other long term (current) drug therapy
CPT/HCPCS: 36415; 80048; 85025

== ENCOUNTER → 2022-11-16 14:09 | Outpatient (BNVA) | payer MEDICAID, SELFPAY | PROVIDERS: PCP Nurse Practitioner Family; Visit Provider Internal Medicine Pulmonary Disease | DX: J44.9 Chronic obstructive pulmonary disease, unspecified (principal); Z87.891 Personal history of nicotine dependence; J90 Pleural effusion, not elsewhere classified; I50.9 Heart failure, unspecified; I48.91 Unspecified atrial fibrillation; I25.10 Atherosclerotic heart disease of native coronary artery without angina pectoris; Z79.01 Long term (current) use of anticoagulants; F10.11 Alcohol abuse, in remission; I25.2 Old myocardial infarction | CPT/HCPCS: 99214 ==

== ENCOUNTER 2022-11-28 06:55 | Day surgery (SDC) | payer MEDICAID, SELFPAY ==
[2022-11-27 10:50] VITALS: BMI 33.0
[2022-11-28] VITALS (9 sets, daily range): BP systolic 140–158; BP diastolic 71–96; PULSE 72–92; RESP 16–18; TEMP -13.8–36.3; O2SAT 93–97
--- NOTE | 2022-11-28 07:15 | ECG_ITS ---
[facility] Test Date: 2022-11-28 Pat Name: Samuel Meier Department: Room: Gender: Male Ux Lead: : 1965 Requested By: Cristian Mendenhall Order Number: [id number] Liang MD: Melo Emery M.D. Measurements Intervals [place] Rate: 68 P: 53 [place]: 203 QRS: 10 QRSD: 101 T: 14 QT: 342 QTc: 366 Interpretive Statements SINUS RHYTHM Compared to ECG 04/06/2022 10:46:11 Myocardial infarct finding no longer present Electronically Signed On 11-28-2022 16:59:10 CDT by Melo Emery M.D. [id number]
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
[2022-11-28] MEDS: sodium chloride 0.9% 1,000 ML 30 ML IV (07:37)
[2022-11-28] MEDS: ketorolac 30 mg/mL INJ IVP (07:37)
[2022-11-28] MEDS: acetaminophen 1,000 MG/100 ML PIGGYBACK 400 MG IV (07:38)
--- NOTE | 2022-11-28 07:51 | ANES.PROC ---
Anesthesia Procedures Procedure/Date: 11/28/22 Nerve Block ^: Nerve Block 1: Main Anesthesia: general anesthesia Time Out Performed: Yes Consent: requested by attending/covering physician, from other, risks and benefits reviewed and patient agrees to proceed Nerve block location: adductor canal (L) Anesthesia monitors applied: pulse oximetry, EKG, BP cuff and oxygen Nerve block position: supine Anesthetic Used: ropivicaine 0.5% (30 ml) and with decadron ( mg) Ultrasound used to: recognize landmarks and visualize and ID femerol nerve Nerve Stimulator Used?: No Interscalene/Femoral BLK: 4 stimuplex 21 g needle used for position and inplane approach, visualize local anesthetic spread and no vascular puncture identified Injection: neg aspiration of heme Patient Tolerated Procedure: well Complications: none Additional Comments: Patient informed he will not be permitted to bear weight on the Left extremity for at least 24 hrs until nerve block wears off if he proceeds with block. States he has brother willing to help with any transfers at home such as for using the restroom and would like to proceed
--- NOTE | 2022-11-28 09:03 | P.HPUD_ITS ---
Surgery/Procedure H&P Update DATE OF PROCEDURE: November 28, 2022 DATE H&P PERFORMED: 11/09/22 CHANGES TO PREVIOUS DOCUMENTATION: None. Patient continues to have left knee pain and findings consistent with medial meniscus tear. We talked about his treatment options operative intervention. This point time he is agreeable to proceed with a left knee diagnostic and surgical arthroscopy with plan for partial medial meniscectomy versus repair. Patient understands the risk benefits complication alternatives with surgery. No change in his HPI from his previous office visit. Has been seen evaluated by our preoperative clinic and's been cleared and instructed of izabela domingoing his Eliquis 1 day prior to surgery during the day of surgery and may resume postoperative day 1. Patient agrees to proceed with surgical intervention all questions answered PREOP DIAGNOSIS: Left knee medial meniscus tear PRIMARY INDICATION FOR PROCEDURE: Left knee medial meniscus tear PLANNED PROCEDURE: Operation Date: 11/28/22 08:40 Proposed Procedures p left knee diagnostic and surgical arthroscopy:34298,S83.207A(Left) - Morales Goldstein DO
[2022-11-28] MEDS: ceFAZolin 2,000 MG in sodium chloride 0.9% (plus) 50 ML 100 MG IV (09:13)
[2022-11-28] MEDS: lidocaine-epi 2% 20 mL INJ 40 ML INJECTION (10:01)
--- NOTE | 2022-11-28 10:11 | P.OP_ITS ---
Brief Operative Note Date of procedure: 11/28/22 Pre-op diagnosis: Left knee medial meniscus tear Post-op diagnosis: other (Left knee medial plica and extensive synovitis) Procedure Done: Left knee diagnostic and surgical arthroscopy with extensive synovectomy of me dial lateral and patellofemoral compartments Left knee diagnostic and surgical arthroscopy with medial plica excision Surgeon: Morales Goldstein Estimated blood loss (mL): 2 Complications: None Post-op Plan: Patient taken to PACU in stable condition recovering well. Will receive appropriate discharge instruction as well as pain medication postoperatively. Encourage weightbearing as tolerated to left lower extremity. Patient follow-up in the orthopedic office in 2 weeks. We will resume his home Eliquis. Understands to contact the office for any questions or concerns Condition: stable Disposition: same day Coding Level of Care Code Acute Code for Corrie Burgos
--- NOTE | 2022-11-28 10:12 | P.OP_ITS ---
Operative Report Date of procedure: November 28, 2022 Pre-op diagnosis: Preop Diagnosis Left knee medial meniscus tear Procedure: Post-op diagnosis: Left knee extensive synovitis Left knee medial plica Procedure done: Left knee diagnostic and surgical arthroscopy with extensive synovectomy of medial, lateral and patellofemoral compartments Left knee diagnostic and surgical arthroscopy with medial plica excision Surgeon: Morales Goldstein DO Estimated blood loss: 2 Tourniquet: No tourniquet was used IV fluids: See anesthesia record Complications: None Findings: See operative report narrative Condition: stable Disposition: same day Brief History: Patient is a 57-year-old male with left knee pain. He has failed conservative treatment who has been worked up for right knee pain in the outpatient setting.? Patient's failed conservative treatment and patient has received corticosteroid injections with only temporary relief and MRI findings consistent with possible meniscal tear. Given his failed conservative treatment talked in the office about treatment options he like to proceed with a left knee diagnostic and surgical arthroscopy. Patient understand the ins and outs of the procedure the risk benefits complication alternatives to treatment options.? Understanding risk of surgery they agree to proceed with surgical intervention.? Patient understand this may not provide patient with complete symptomatic relief of pain.? Understanding this and patient agree to proceed with surgical intervent ion all questions answered. MR/MR knee LT wo con* [id number] IMPRESSION: ? 1.? No significant joint effusion. 2.? Mild increased signal in the posterior horn medial meniscus. No definite tear is identified. Slightly more increased signal towards the meniscal root but cannot confirm tear. 3.? Very tiny Conway's cyst. 4.? Subchondral bone cyst in the posterior lateral tibial plateau. ? ? Procedure: Patient seen and evaluated in the preoperative holding area.? Consent was reviewed and signed with patient.? Correct extremity was then marked.? Patient seen evaluated Anesthesia Department once cleared for surgery patient was taken back to the operative suite.? Patient was transported onto the OR table in supine position.? All bony prominences well-padded patient was appropriate secured to the bed.? Once appropriately anesthetized a nonsterile tourniquet was applied to the left thigh.? The left lower extremity was then prepped and draped in standard orthopedic fashion.? Final timeout performed.? Patient received appropriate preoperative antibiotics. Patient received local anesthetic of lidocaine with epinephrine into the joint a s well as around the portal sites.? No tourniquet was inflated A standard 2 portal vertical incision diagnostic and surgical arthroscopy of the left knee was performed in standard fashion.? Small stab incision made in the inferolateral portal introduced trocar and arthroscope into the suprapatellar pouch.? Suprapatellar pouch was subsequently visualized and found to have significant synovitis but no loose bodies.? Patient had noticeable significant inflamed infrapatellar fat pad and thickening hypertrophic within the patellofemoral compartment. It was also noted patient had a significantly thickened medial plica that was snapping over the medial femoral condyle. ?The medial gutter was free of loose bodies I then introduced the arthroscope into the medial compartment.? Within the medial compartment I then established my inferior medial working portal utilizing spinal needle outside in technique.? Once established I then visualized our articular cartilage of the medial compartment with a valgus stress.? 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 Next I inspected the meniscus.? With an arthroscopic probe was utilized to visual? all aspects of the meniscus.? Meniscal root was found to be intact.? Meniscus was found to be completely intact with no evidence of tear, no chondral injury was noted.? A simple synovectomy of the medial compartment was performed with arthroscopic shaver.? This completed medial compartment work. Next a introduced the arthroscope to the intercondylar notch.? PCL and ACL were intact. patient had significant thickening of the infrapatellar fat pad spanning into the medial and lateral compartments.? I then performed an extensive synovectomy with the arthroscopic shaver of the patellofemoral medial and later al compartments as well as the intercondylar notch. Advance the scope into the retrocruciate space and no loose bodies were found. Next I introduced the arthroscope into the lateral compartment the lateral compartment was found to have grade?1-2 chondromalacia.??Meniscus was inspected with arthroscopic probe no evidence of meniscal tear and the root was intact.? This completed work in the lateral compartment. I performed a synovectomy of the lateral compartment. Next of the arthroscope was placed into the lateral gutter and this was free of loose bodies.? Finally I reintroduced the arthroscope into the patellofemoral compartment.? The patellofemoral was found to have grade grade one of the trochlear groove and small amount of grade 2 chondromalacia focused underneath the patella. ?At this point I utilized arthroscopic shaver as well as thermal wand to perform fat pad synovectomy.? After completing the synovectomy I evaluated the thickened medial plica that appeared symptomatic on the medial femoral condyle. Utilized arthroscopic shaver and performed complete medial plica excision. This completed my work of the patellofemoral space.? ? I then switch my portal sites to the medial working portal.? Completed the rest of my synovectomy and the rest of my examination arthroscopy was normal. Tourniquet was deflated hemostasis satisfactory.? All fluid was suctioned from the joint.?? All instruments were withdrawn.? Portal sites were closed with interrupted nylon suture.? portal sites were then covered with with Xeroform 4 x 4's ABD Curlex and Redd wrap.? Patient was then subsequently awakened from anesthesia and taken to PACU in stable condition. Disposition: Patient taken to PACU in stable condition recovering well.? Will receive appropriate discharge structure as well as pain medication postoperatively as well as continue home Eliquis for DVT prophylaxis.we will have patient follow-up with us in the office in 2 weeks.? We will weightbearing as tolerated to the left lower extremity.? Patient understands and agrees with current plan.? All questions answered.
--- NOTE | 2022-11-28 10:12 | PM.PACU ---
PACU note Narrative: Patient taken to PACU in stable condition recovering well. Pain controlled. Dressing on in place clean dry intact. Patient able to wiggle toes plantarflex and dorsiflex ankle endorses sensation intact light touch in the toes. Distal pulses are palpable toes warm well perfused Exam: awake Disposition: discharged
--- NOTE | 2022-11-28 14:54 | ANE.PACU2 ---
Inpatient post-anesthesia follow up: Airway intact: Yes Vital signs: Temperature 7.2 F Pulse Rate 92 Respiratory Rate 18 Blood Pressure 158/76 Pulse Oximetry 94 Oxygen Delivery Me thod Room Air Oxygen Flow Rate Fraction of Inspir ed Oxygen Hydration adequate: Yes Nausea and vomiting: No Pain level: 1 Mental status: Baseline
== END 2022-11-28 11:50 | disposition home or self-care (01) ==
PROVIDERS: PCP Nurse Practitioner Family; Visit Provider Student in an Organized Health Care Education/Training Program
PROC: (CPT 29870; principal; 2022-11-28 08:30)
DX: M65.862 Other synovitis and tenosynovitis, left lower leg (principal); M67.52 Plica syndrome, left knee; I48.91 Unspecified atrial fibrillation; J44.9 Chronic obstructive pulmonary disease, unspecified; I25.10 Atherosclerotic heart disease of native coronary artery without angina pectoris; I50.9 Heart failure, unspecified; I11.0 Hypertensive heart disease with heart failure; I25.2 Old myocardial infarction; E78.5 Hyperlipidemia, unspecified; Z79.82 Long term (current) use of aspirin; Z79.01 Long term (current) use of anticoagulants; Z87.891 Personal history of nicotine dependence
CPT/HCPCS: 29876; 93005; J0131; J0690; J1100; J1170; J1885; J2405; J2704; J2795; J3010; J3490; J7030

== ENCOUNTER → 2022-12-14 09:58 | Outpatient (BNVA) | payer MEDICAID, SELFPAY | PROVIDERS: PCP Nurse Practitioner Family; Visit Provider Nurse Practitioner Family | DX: Z98.890 Other specified postprocedural states (principal) | CPT/HCPCS: 99024 ==

== ENCOUNTER → 2023-01-18 09:09 | Outpatient (BNVA) | payer MEDICAID, SELFPAY | PROVIDERS: PCP Nurse Practitioner Family; Visit Provider Student in an Organized Health Care Education/Training Program | DX: Z98.890 Other specified postprocedural states (principal) | CPT/HCPCS: 99024; 99213 ==

== ENCOUNTER → 2023-01-22 14:49 | Outpatient (BNVA) | payer MEDICAID, SELFPAY | PROVIDERS: PCP Nurse Practitioner Family; Visit Provider Internal Medicine Cardiovascular Disease | DX: I48.0 Paroxysmal atrial fibrillation (principal); I25.10 Atherosclerotic heart disease of native coronary artery without angina pectoris; I50.9 Heart failure, unspecified; I11.0 Hypertensive heart disease with heart failure; Z87.891 Personal history of nicotine dependence; Z79.01 Long term (current) use of anticoagulants | CPT/HCPCS: 99214 ==

== ENCOUNTER → 2023-02-14 09:24 | Outpatient (BNVA) | payer MEDICARE, MEDICAID, SELFPAY | PROVIDERS: PCP Nurse Practitioner Family; Visit Provider Anesthesiology Pain Medicine | DX: G89.29 Other chronic pain; M16.0 Bilateral primary osteoarthritis of hip; M54.50 Low back pain, unspecified | CPT/HCPCS: 99214 ==

== ENCOUNTER 2023-04-10 10:19 | Outpatient (CLI) | payer MEDICARE, MEDICAID, SELFPAY ==
--- NOTE | 2023-04-10 10:45 | CT_ITS ---
WS: [id number] LDCT LUNG CANCER SCREENING TECHNIQUE: Noncontrast CT of the chest with coronal and sagittal reformatted images. CLINICAL INFORMATION: former smoker COMPARISON: CT chest 04/07/2022 and 11/29/2021 DLP: 100.19 mGy.cm DIvol: Mean CTDIvol: 2.20 (mGy) All CT scans at [facility] use at least one of these dose optimization techniques: automat ed exposure control; mA and/or kV adjustment per patient size (includes targeted exams where dose is matched to clinical indication); or iterative reconstruction. FINDINGS: Pleural parenchymal scarring RIGHT upper lobe and RIGHT lower lobe. Mild chronic emphysematous change s. No suspicious pulmonary parenchymal abnormalities. Normal caliber thoracic aorta. Calcified LEFT hilar and subcarinal lymph nodes. Mild aortic calcifica tion. Mild coronary calcification. No mediastinal or hilar lymphadenopathy. No axillary lymphadenopat hy. Adrenal glands are normal. IMPRESSION: CT/CT lung screening [id number] LUNG-RADS: 2-Benign Appearance or Behavior FOLLOW UP: 12 Month: Continue annual screening with LDCT
== END 2023-04-10 10:20 | disposition home or self-care (01) ==
LOC: RAD 10:20
PROVIDERS: PCP Nurse Practitioner Family; Visit Provider Internal Medicine Pulmonary Disease
DX: Z12.2 Encounter for screening for malignant neoplasm of respiratory organs (principal); Z87.891 Personal history of nicotine dependence
CPT/HCPCS: 71271

== ENCOUNTER → 2023-05-17 09:39 | Outpatient (BNVA) | payer MEDICARE, MEDICAID, SELFPAY | PROVIDERS: PCP Nurse Practitioner Family; Visit Provider Anesthesiology Pain Medicine | DX: G89.29 Other chronic pain; M51.16 Intervertebral disc disorders with radiculopathy, lumbar region; M16.0 Bilateral primary osteoarthritis of hip; I50.9 Heart failure, unspecified; J44.9 Chronic obstructive pulmonary disease, unspecified; M25.561 Pain in right knee; M25.562 Pain in left knee | CPT/HCPCS: 99214 ==

== ENCOUNTER → 2023-05-30 09:57 | Outpatient (BNVA) | payer MEDICARE, MEDICAID, SELFPAY | PROVIDERS: PCP Nurse Practitioner Family; Visit Provider Anesthesiology Pain Medicine | DX: M79.18 Myalgia, other site (principal); M54.2 Cervicalgia; M25.561 Pain in right knee; M25.562 Pain in left knee; M54.50 Low back pain, unspecified; M16.0 Bilateral primary osteoarthritis of hip; I50.9 Heart failure, unspecified; J44.9 Chronic obstructive pulmonary disease, unspecified | CPT/HCPCS: 20553; 99214; J1030; J3490 ==

== ENCOUNTER → 2023-06-04 12:53 | Outpatient (BNVA) | payer MEDICARE, MEDICAID, SELFPAY | PROVIDERS: PCP Nurse Practitioner Family; Visit Provider Internal Medicine Pulmonary Disease | DX: J43.9 Emphysema, unspecified (principal); I50.9 Heart failure, unspecified; Z87.891 Personal history of nicotine dependence; I48.91 Unspecified atrial fibrillation; R23.2 Flushing; R63.5 Abnormal weight gain; Z68.33 Body mass index [BMI] 33.0-33.9, adult; Z79.01 Long term (current) use of anticoagulants; I25.10 Atherosclerotic heart disease of native coronary artery without angina pectoris | CPT/HCPCS: 99214 ==

== ENCOUNTER → 2023-07-25 10:03 | Outpatient (BNVA) | payer MEDICARE, MEDICAID, SELFPAY | PROVIDERS: PCP Nurse Practitioner Family; Visit Provider Anesthesiology Pain Medicine | DX: M54.2 Cervicalgia (principal); M51.17 Intervertebral disc disorders with radiculopathy, lumbosacral region; M16.0 Bilateral primary osteoarthritis of hip; I50.9 Heart failure, unspecified; J44.9 Chronic obstructive pulmonary disease, unspecified | CPT/HCPCS: 72040; 99214 ==

== ENCOUNTER → 2023-08-08 09:47 | Outpatient (BNVA) | payer MEDICARE, MEDICAID, SELFPAY | PROVIDERS: PCP Nurse Practitioner Family; Visit Provider Anesthesiology Pain Medicine | DX: M79.18 Myalgia, other site (principal); I25.10 Atherosclerotic heart disease of native coronary artery without angina pectoris; I48.91 Unspecified atrial fibrillation; M54.2 Cervicalgia; M25.569 Pain in unspecified knee; M54.9 Dorsalgia, unspecified; M16.0 Bilateral primary osteoarthritis of hip; I50.9 Heart failure, unspecified; J44.9 Chronic obstructive pulmonary disease, unspecified; M25.561 Pain in right knee; M25.562 Pain in left knee | CPT/HCPCS: 20553; 99214; J1030; J3490 ==

== ENCOUNTER → 2023-09-20 13:16 | Outpatient (BNVA) | payer MEDICARE, MEDICAID, SELFPAY | PROVIDERS: PCP Nurse Practitioner Family; Referring Provider Internal Medicine; Visit Provider Internal Medicine | DX: I48.91 Unspecified atrial fibrillation (principal); Z79.01 Long term (current) use of anticoagulants; Z79.82 Long term (current) use of aspirin; I25.10 Atherosclerotic heart disease of native coronary artery without angina pectoris; E78.5 Hyperlipidemia, unspecified; I11.0 Hypertensive heart disease with heart failure; I50.9 Heart failure, unspecified; I08.0 Rheumatic disorders of both mitral and aortic valves; Z87.891 Personal history of nicotine dependence | CPT/HCPCS: 99214 ==

== ENCOUNTER → 2023-10-08 09:41 | Outpatient (BNVA) | payer MEDICARE, MEDICAID, SELFPAY | PROVIDERS: PCP Nurse Practitioner Family; Visit Provider Anesthesiology Pain Medicine | DX: M51.17 Intervertebral disc disorders with radiculopathy, lumbosacral region (principal); M54.2 Cervicalgia; M25.561 Pain in right knee; M16.0 Bilateral primary osteoarthritis of hip; M25.562 Pain in left knee; I50.9 Heart failure, unspecified; J44.9 Chronic obstructive pulmonary disease, unspecified | CPT/HCPCS: 99214 ==

== ENCOUNTER → 2023-11-05 13:18 | Outpatient (BNVA) | payer MEDICARE, SELFPAY | PROVIDERS: PCP Nurse Practitioner Family; Visit Provider Thoracic Surgery (Cardiothoracic Vascular Surgery) | DX: I65.22 Occlusion and stenosis of left carotid artery (principal); Z87.891 Personal history of nicotine dependence; I10 Essential (primary) hypertension | CPT/HCPCS: 99203 ==

== ENCOUNTER → 2023-11-08 14:49 | Outpatient (BNVA) | payer MEDICARE, SELFPAY | PROVIDERS: PCP Nurse Practitioner Family; Visit Provider Anesthesiology Pain Medicine | DX: M79.18 Myalgia, other site (principal); M54.2 Cervicalgia; M25.561 Pain in right knee; M16.0 Bilateral primary osteoarthritis of hip; I50.9 Heart failure, unspecified; J44.9 Chronic obstructive pulmonary disease, unspecified; M25.562 Pain in left knee; M51.27 Other intervertebral disc displacement, lumbosacral region | CPT/HCPCS: 20553; 99214; J1010; J3490 ==

== ENCOUNTER → 2023-11-28 13:09 | Outpatient (BNVA) | payer MEDICARE, MEDICAID, SELFPAY | PROVIDERS: PCP Nurse Practitioner Family; Visit Provider Anesthesiology Pain Medicine | DX: M47.816 Spondylosis without myelopathy or radiculopathy, lumbar region (principal); G89.29 Other chronic pain | CPT/HCPCS: 64635; 64636; J1010 ==

== ENCOUNTER → 2023-12-12 12:34 | Outpatient (BNVA) | payer MEDICARE, MEDICAID, SELFPAY | PROVIDERS: PCP Nurse Practitioner Family; Visit Provider Anesthesiology Pain Medicine | DX: M47.816 Spondylosis without myelopathy or radiculopathy, lumbar region (principal); G89.29 Other chronic pain | CPT/HCPCS: 64635; 64636; J1010 ==

== ENCOUNTER 2023-12-27 10:51 | Outpatient (CLI) | payer MEDICARE, MEDICAID, SELFPAY ==
--- NOTE | 2023-12-27 11:45 | USCV_ITS ---
Samuel Meier Age: 58 Gender: M : 1965 Exam Date: 12/27/2023 09:09 Ordering Phys: Melo Emery M.D ([email or web address]) Technologist: Exam Location[place] [facility] [place] Indication: cp sob BP: 154 / 74 HR: 69 Rhythm: Sinus Technical Quality: Adequate MEASUREMENTS (Male / Female) Normal Values 2D ECHO LV Diastolic Diameter PLAX 6.0 cm 4.2 - 5.9 / 3.9 - 5.3 cm IVS Diastolic Thickness 1.1 cm 0.6 - 1.0 / 0.6 - 0.9 cm IVS Systolic Thickness 1.6 cm LVPW Diastolic Thickness 1.0 cm 0.6 - 1.0 / 0.6 - 0.9 cm LVPW Systolic Thickness 1.6 cm LVOT Diameter 2.0 cm LV Ejection Fraction 2D Teich 68.6 % LV Ejection Fraction MOD 2C 65.0 % LV Ejection Fraction 2C AL 67.1 % LA Diameter 4.0 cm RA Systolic Volume 4C AL 51.1 ml RA Systolic Volume 4C MOD 49.4 ml LA Sys Volume AL 84.9 cm cubed LA Sys Volume Index AL 36.0 cm cubed/m squared Aorta at Sinotubular Diameter 2.7 cm IVC Diameter 2.1 cm DOPPLER AV Peak Velocity 310.0 cm/s LVOT Peak Velocity 106.0 cm/s AV Area Cont Eq vti 2.0 cm squared AV Area Cont Eq pk 1.1 cm squared MV Peak Velocity 121.7 cm/s MV Area PHT 5.7 cm squared Mitral E to A Ratio 1.2 TV Peak Velocity 268.0 cm/s TR Peak Velocity 288.0 cm/s TR Peak Gradient 33.2 mmHg TV Peak E Velocity 145.0 cm/s PV Peak Velocity 117.0 cm/s FINDINGS Left Ventricle LV systolic function is normal with EF of 60 to 65%. No regional wall motion abnormalities are seen. Right Ventricle Normal in size and function Right Atrium Normal in size Left Atrium Dilated Mitral Valve Structurally normal mitral valve. Mild mitral regurgitation. Aortic Valve Structurally normal aortic valve. No significant stenosis. Mild aortic regurgitation. Tricuspid Valve Insufficient TR jet to evaluate RVSP. Pulmonic Valve Normal in size Pericardium Normal Aorta Appears to be normal IVC Normal in size CONCLUSIONS LV systolic function is normal with EF of 60-65% Left atrial dilation Mild mitral regurgitation Mild aortic regurgitation Compared to prior echocardiogram from 2020, no significant changes are seen Melo Emery MD (Electronically Signed) Final Date: 30 December 2023 23:03 S
== END 2023-12-27 10:52 | disposition home or self-care (01) ==
LOC: RAD 10:51
PROVIDERS: PCP Nurse Practitioner Family; Visit Provider Internal Medicine
DX: I08.0 Rheumatic disorders of both mitral and aortic valves (principal); I50.9 Heart failure, unspecified; J44.9 Chronic obstructive pulmonary disease, unspecified; M16.0 Bilateral primary osteoarthritis of hip; M51.17 Intervertebral disc disorders with radiculopathy, lumbosacral region; G89.29 Other chronic pain; M54.2 Cervicalgia
CPT/HCPCS: 93306; 99214

== ENCOUNTER → 2024-01-29 08:48 | Outpatient (BNVA) | payer MEDICARE, MEDICAID, SELFPAY | PROVIDERS: PCP Nurse Practitioner Family; Visit Provider Internal Medicine Critical Care Medicine | DX: J44.9 Chronic obstructive pulmonary disease, unspecified (principal); R06.09 Other forms of dyspnea; E66.9 Obesity, unspecified; R53.81 Other malaise; Z68.34 Body mass index [BMI] 34.0-34.9, adult; Z87.891 Personal history of nicotine dependence | CPT/HCPCS: 99213 ==

== ENCOUNTER 2024-02-06 09:03 | Outpatient (CLI) | payer MEDICARE, MEDICAID, SELFPAY | END 2024-02-06 09:04 | disposition home or self-care (01) | LOC: RT 09:04 | PROVIDERS: PCP Nurse Practitioner Family; Visit Provider Internal Medicine Critical Care Medicine | DX: R06.09 Other forms of dyspnea (principal) | CPT/HCPCS: 94010; 94618; 94726; 94729 ==

== ENCOUNTER 2024-03-27 12:19 | Outpatient (CLI) | payer MEDICARE, MEDICAID, SELFPAY ==
--- NOTE | 2024-03-27 12:30 | CT_ITS ---
WS: [id number] LDCT LUNG CANCER SCREENING HISTORY: Cancer Screen TECHNIQUE: Axial imaging performed from the apices to 1 cm below the costophrenic angles. Coronal and sagittal reformats are submitted with axial MIP series. All CT scans at [facility] use at least one of these dose optimization techniques: automated exposure control; mA and/or kV adjustment per patient size (includes targeted exams where dose is matched to clinical indication); or iterativ e reconstruction. DLP: 119.11 mGy.cm DIvol: Mean CTDIvol: 2.80 (mGy) COMPARISON: 04/10/2023, 04/07/2022 Diagnostic quality: Satisfactory Lungs: Volume loss with mild elevation of the RIGHT hemidiaphragm. Reidentified is chronic pleural-pa renchymal scarring in the RIGHT upper lobe with mild thickening along the fissures. There is an addit ional chronic appearing atelectasis and scarring in the RIGHT lower lobe. No new pulmonary mass or no dules identified. Bronchiectasis is noted in the RIGHT upper and RIGHT lower lobes. No endobronchial lesions. Heart: Normal size heart with no pericardial effusion.. Other findings: Mild prominence of the pulmonary artery. Mild atherosclerosis aorta. No mediastinal o r hilar adenopathy. No adrenal mass. Mild thoracic spondylosis. CT/CT lung screening [id number] IMPRESSION: LUNG-RADS: 2-Benign Appearance or Behavior FOLLOW UP: 12 Month: Continue annual screening with LDCT OTHER FINDINGS (S MODIFIER): None.
== END 2024-03-27 12:20 | disposition home or self-care (01) ==
LOC: RAD 12:20
PROVIDERS: PCP Nurse Practitioner Family; Visit Provider Internal Medicine Critical Care Medicine
DX: Z12.2 Encounter for screening for malignant neoplasm of respiratory organs (principal); Z87.891 Personal history of nicotine dependence; J98.11 Atelectasis; J92.9 Pleural plaque without asbestos; J47.9 Bronchiectasis, uncomplicated; I48.91 Unspecified atrial fibrillation; I25.10 Atherosclerotic heart disease of native coronary artery without angina pectoris; I11.0 Hypertensive heart disease with heart failure; I50.9 Heart failure, unspecified; I08.0 Rheumatic disorders of both mitral and aortic valves; Z79.01 Long term (current) use of anticoagulants; Z79.82 Long term (current) use of aspirin
CPT/HCPCS: 71271; 99214

== ENCOUNTER 2024-04-07 09:27 | Outpatient (CLI) | payer MEDICARE, SELFPAY ==
--- NOTE | 2024-04-07 09:30 | USCV_ITS ---
Samuel Meier Age: 58 Gender: M : 1965 Exam Date: 04/07/2024 09:36 Ordering Phys: Darren Simpson MD (Andy) ([email or web address] [email or web address]) Technologist: CT Exam Location: [facility] [place] Indication: stenosis Risk Factors: Previous Vascular Surgery: Right Brachial BP: / Left Brachial BP: / Right Left Velocity (cm/s) Spectral Plaque Velocity (cm/s) Spectral Plaque Syst/Diast Broadening Syst/Diast Broadening 170.40/35.10 Prox CCA 149.70/ 32.10 153.10/28.70 Mid CCA 140.00/ 31.50 130.00/28.70 Distal CCA 130.40/ 31.80 112.40/27.90 Prox ICA 108.20/ 21.90 118.10/28.30 Mid ICA 90.90 / 23.00 90.30/ 21.70 Distal ICA 89.40 / 25.90 125.20 ECA 123.00 0.90 ICA/CCA 0.80 Antegrade Vertebral Antegrade 49.70/ 18.80 cm/s 51.00/ 15.40 cm/s Tri Subclavian Tri 92.40 250.1 0 FINDINGS Comparison: none available. Diffuse, mild bilateral scattered calcified plaque and intimal thickening throughout the common carotid arteries and extending through the bifurcation. Antegrade vertebral arteries. No systolic elevation of velocity. CONCLUSIONS Bilateral ICA stenosis less than 50%. Diffuse mild atheromatous plaque. Dr. Oralia Roberts DO (Electronically Signed) Final Date: 07 April 2024 11:50 S
== END 2024-04-07 09:28 | disposition home or self-care (01) ==
LOC: RAD 09:28
PROVIDERS: PCP Nurse Practitioner Family; Visit Provider Thoracic Surgery (Cardiothoracic Vascular Surgery)
DX: I65.23 Occlusion and stenosis of bilateral carotid arteries (principal)
CPT/HCPCS: 93880

== ENCOUNTER 2024-04-14 09:22 | Outpatient (CLI) | payer MEDICARE, SELFPAY ==
--- NOTE | 2024-04-14 09:47 | NMCV_ITS ---
NM wu perf SPECT r/s* [id number] Renea, Samuel Age: 58 Gender: M : 1965 Exam Date: 04/14/2024 10:31 Ordering Phys: Melo Emery M.D ([email or web address]) Technologist: ROLAND Lazar Exam Location: [facility] Indications: cp STRESS TEST Please see separate stress test report in [facility] for full findings IMAGE PROTOCOL Rest/Stress 1 Dobutamine Day Radiopharmaceutical Dose (mCi) Administration Site Administered by Rest: Tc-99m 11 IV ROLAND Lazar Stress:Tc-99m 33 IV ROLAND Lazar Rest: 04/14/2024 60 Discovery 630 Stress: 04/14/2024 30 Discovery 630 0.4mg Lexiscan. Images obtained in supine and prone position. SPECT RESULTS Technical Quality: Good Raw Data Analysis: Normal Image Corrections: No attenuation or motion correction applied Summed Stress Score: 0 Summed Rest Score: 1 Summed Difference Score: 0 PERFUSION FINDINGS SPECT images demonstrate homogeneous tracer distribution throughout the myocardium. FUNCTIONAL RESULTS (calculated via Gated SPECT) Stress Image LV EF (%): 67 Stress EDV (mL):150 TID: 1.01 Stress ESV (mL):49 FUNCTIONAL FINDINGS: There is normal left ventricular systolic function. IMPRESSIONS 1. Normal myocardial perfusion imaging with no evidence of ischemia 2. LV systolic function is normal Melo Emery MD (Electronically Signed) Final Date: 14 April 2024 18:34 S
--- NOTE | 2024-04-14 09:47 | ECG_ITS ---
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 Interpretive Statements LEXISCAN SESTAMIBI STRESS TEST Procedure: At the baseline, the blood pressure was 134/68 mmHg with a heart rate of 52 bpm. The electrocardiogram showed sinus bradycardia, normal axis with normal ST and T's. The Lexiscan was infused over a period of 20 seconds. A total of 0.4 mg of Lexiscan was infused. The stress phase was continued for a total of 5 minutes. Heart rate was at the end of stress phase was 64 bpm and a blood pressure of 132/68 mmHg. The EKG at the peak infusion revealed normal sinus rhythm with no significant ST-T wave changes. Sestamibi was injected 20 seconds after the Lexiscan infusion. Blood pressure at the end of recovery phase was 129/67 mmHg with a heart rate of 65 bpm. Conclusion: 1. Normal EKG response to Lexiscan infusion 2. No Lexiscan induced chest pain or cardiac arrhythmia. 3. Normal blood pressure and heart rate response. 4. Sestamibi/sestamibi perfusion scan pending; see separate report. Electronically Signed On 04-25-2024 19:56:04 CDT by Melo Emery M.D. [email or web address]
[2024-04-14 09:48] VITALS: BMI 34.8
[2024-04-14 11:26] VITALS: BP 129/67; PULSE 65
== END 2024-04-14 09:23 | disposition home or self-care (01) ==
PROVIDERS: PCP Nurse Practitioner Family; Visit Provider Internal Medicine
DX: R07.9 Chest pain, unspecified (principal); R06.02 Shortness of breath
CPT/HCPCS: 36415; 78452; 93017; 96374; A9500

== ENCOUNTER → 2024-07-23 08:12 | Outpatient (BNVA) | payer MEDICARE, SELFPAY | PROVIDERS: PCP Nurse Practitioner Family; Visit Provider Anesthesiology Pain Medicine | DX: M79.18 Myalgia, other site (principal); M54.9 Dorsalgia, unspecified; M16.0 Bilateral primary osteoarthritis of hip; M54.2 Cervicalgia; G89.29 Other chronic pain; M25.569 Pain in unspecified knee; I50.9 Heart failure, unspecified; J44.9 Chronic obstructive pulmonary disease, unspecified | CPT/HCPCS: 20553; 99214; J1010; J3490 ==

== ENCOUNTER → 2024-08-13 09:45 | Outpatient (BNVA) | payer MEDICARE, SELFPAY | PROVIDERS: PCP Nurse Practitioner Family; Referring Provider Nurse Practitioner Family; Visit Provider Nurse Practitioner Family | DX: L57.8 Other skin changes due to chronic exposure to nonionizing radiation (principal); D48.5 Neoplasm of uncertain behavior of skin; L57.0 Actinic keratosis | CPT/HCPCS: 11102; 17000; 99203 ==

== ENCOUNTER → 2024-09-22 08:57 | Outpatient (BNVA) | payer MEDICARE, SELFPAY | PROVIDERS: PCP Nurse Practitioner Family; Visit Provider Anesthesiology Pain Medicine | DX: M54.2 Cervicalgia (principal); M54.9 Dorsalgia, unspecified; G89.29 Other chronic pain; M25.569 Pain in unspecified knee; M16.0 Bilateral primary osteoarthritis of hip; I50.9 Heart failure, unspecified; J44.9 Chronic obstructive pulmonary disease, unspecified | CPT/HCPCS: 99214 ==

== ENCOUNTER → 2024-09-24 14:43 | Outpatient (BNVA) | payer MEDICARE, SELFPAY | PROVIDERS: PCP Nurse Practitioner Family; Visit Provider Anesthesiology Pain Medicine | DX: M79.18 Myalgia, other site (principal); M54.2 Cervicalgia; M54.9 Dorsalgia, unspecified; G89.29 Other chronic pain; M25.569 Pain in unspecified knee; M16.0 Bilateral primary osteoarthritis of hip; I50.9 Heart failure, unspecified; J44.9 Chronic obstructive pulmonary disease, unspecified | CPT/HCPCS: 20553; 99214; J1010; J3490 ==

== ENCOUNTER → 2024-09-30 15:19 | Outpatient (BNVA) | payer MEDICARE, SELFPAY | PROVIDERS: PCP Nurse Practitioner Family; Visit Provider Internal Medicine | DX: I48.91 Unspecified atrial fibrillation (principal); I25.10 Atherosclerotic heart disease of native coronary artery without angina pectoris; I11.0 Hypertensive heart disease with heart failure; I50.9 Heart failure, unspecified; E78.5 Hyperlipidemia, unspecified; I08.0 Rheumatic disorders of both mitral and aortic valves; Z87.891 Personal history of nicotine dependence; Z79.01 Long term (current) use of anticoagulants | CPT/HCPCS: 99214 ==

== ENCOUNTER 2024-10-09 14:34 | Outpatient (CLI) | payer MEDICARE, SELFPAY ==
--- NOTE | 2024-10-09 15:30 | USCV_ITS ---
ReneaSamuel mckeon Age: 59 Gender: M : 1965 Exam Date: 10/09/2024 15:18 Ordering Phys: Melo Emery M.D ([email or web address]) Technologist: Exam Location: [facility] [place] Indication: stenosis Risk Factors: Previous Vascular Surgery: Right Brachial BP: / Left Brachial BP: / Right Left Velocity (cm/s) Spectral Plaque Velocity (cm/s) Spectral Plaque Syst/Diast Broadening Syst/Diast Broadening 117.80/34.30 Prox CCA 88.70 / 32.60 144.10/35.90 Mid CCA 98.10 / 29.50 118.80/41.30 Hetro Distal CCA 91.90 / 26.40 Hetro 111.60/26.90 Hetro Prox ICA 101.00/ 27.90 Hetro 108.00/25.10 Mid ICA 93.30 / 32.50 131.50/28.70 Distal ICA 90.10 / 41.90 113.40 ECA 111.90 1.10 ICA/CCA 1.10 Antegrade Vertebral Antegrade 70.00/ 0.00 cm/s 45.00/ 13.90 cm/s Bi Subclavian Bi 96.00 106.7 0 FINDINGS Comparison:. 04/07/24 No significant elevation of systolic or diastolic velocities. Waveforms are normal. Diffuse, mild bilateral scattered calcified plaque and intimal thickening throughout the common carotid arteries and extending through the bifurcation. Antegrade vertebral arteries. CONCLUSIONS Bilateral ICA stenosis less than 50%. Mild diffuse carotid atherosclerosis. Dr. Oralia Roberts DO (Electronically Signed) Final Date: 13 October 2024 08:53 S
== END 2024-10-09 14:35 | disposition home or self-care (01) ==
LOC: RAD 14:40
PROVIDERS: PCP Nurse Practitioner Family; Visit Provider Internal Medicine
DX: I65.23 Occlusion and stenosis of bilateral carotid arteries (principal)
CPT/HCPCS: 93880

== ENCOUNTER → 2024-11-26 08:52 | Outpatient (BNVA) | payer MEDICARE, SELFPAY | PROVIDERS: PCP Nurse Practitioner Family; Visit Provider Anesthesiology Pain Medicine | DX: M79.18 Myalgia, other site (principal); M54.2 Cervicalgia; M54.9 Dorsalgia, unspecified; G89.29 Other chronic pain; M16.0 Bilateral primary osteoarthritis of hip; M25.561 Pain in right knee; M25.562 Pain in left knee | CPT/HCPCS: 20553; 99214; J1010; J3490 ==

== ENCOUNTER → 2024-12-10 15:37 | Outpatient (BNVA) | payer MEDICARE, SELFPAY | PROVIDERS: PCP Nurse Practitioner Family; Visit Provider Nurse Practitioner Family | DX: L57.8 Other skin changes due to chronic exposure to nonionizing radiation (principal); D29.4 Benign neoplasm of scrotum; L82.1 Other seborrheic keratosis; L55.0 Sunburn of first degree; S20.461A Insect bite (nonvenomous) of right back wall of thorax, initial encounter; S30.860A Insect bite (nonvenomous) of lower back and pelvis, initial encounter; X58.XXXA Exposure to other specified factors, initial encounter; L91.8 Other hypertrophic disorders of the skin; L57.0 Actinic keratosis | CPT/HCPCS: 10120; 11200; 17000; 99214 ==

== ENCOUNTER → 2025-01-28 08:54 | Outpatient (BNVA) | payer MEDICARE, SELFPAY | PROVIDERS: PCP Nurse Practitioner Family; Visit Provider Anesthesiology Pain Medicine | DX: M79.18 Myalgia, other site (principal) | CPT/HCPCS: 20553; 99214; J1010; J3490 ==

== ENCOUNTER 2025-03-30 07:25 | Outpatient (CLI) | payer OTHER, SELFPAY ==
--- NOTE | 2025-03-30 07:29 | CT_ITS ---
WS: [id number] LDCT LUNG CANCER SCREENING TECHNIQUE: Noncontrast CT of the chest with coronal and sagittal reformatted images. CLINICAL INFORMATION: HX OF TOBACCO USE COMPARISON: 2023. DLP: 105.41 mGy.cm DIvol: Mean CTDIvol: 2.20 (mGy) All CT scans at [facility] use at least one of these dose optimization techniques: automated exposure control; mA and/or kV adjustment per patient size (includes targeted exams where dose is matched to clinical indication); or iterative reconstruction. FINDINGS: Chronic elevation RIGHT hemidiaphragm. Pleural parenchymal scarring RIGHT upper lobe and along the fissures. Subsegmental atelectasis RIGHT lower lobe. Bronchiectasis RIGHT upper and lower lobes. No new suspicious pulmonary parenchymal abnormalities. A few calcified granulomas. Calcified LEFT hilar and subcarinal lymph nodes. Aortic calcification. No mediastinal or hilar lymphadenopathy. Hypertrophic changes thoracic spine. No axillary lymphadenopathy. Adrenal glands are normal. CT/CT lung screening [id number] IMPRESSION: LUNG-RADS: 2-Benign Appearance or Behavior FOLLOW UP: 12 Month: Continue annual screening with LDCT
== END 2025-03-30 07:26 | disposition home or self-care (01) ==
LOC: RAD 07:26
PROVIDERS: PCP Nurse Practitioner Family; Visit Provider Nurse Practitioner Family
DX: Z12.2 Encounter for screening for malignant neoplasm of respiratory organs (principal); Z87.891 Personal history of nicotine dependence; J47.9 Bronchiectasis, uncomplicated; Q79.1 Other congenital malformations of diaphragm; J98.11 Atelectasis; J84.10 Pulmonary fibrosis, unspecified; I89.8 Other specified noninfective disorders of lymphatic vessels and lymph nodes
CPT/HCPCS: 71271

== ENCOUNTER → 2025-04-13 10:06 | Outpatient (BNVA) | payer OTHER, SELFPAY | PROVIDERS: PCP Nurse Practitioner Family; Visit Provider Nurse Practitioner Family | DX: L57.8 Other skin changes due to chronic exposure to nonionizing radiation (principal); L57.0 Actinic keratosis; D29.4 Benign neoplasm of scrotum; L82.1 Other seborrheic keratosis; D48.5 Neoplasm of uncertain behavior of skin; C43.59 Malignant melanoma of other part of trunk | CPT/HCPCS: 11102; 17000; 99214 ==

== ENCOUNTER → 2025-04-22 14:19 | Outpatient (BNVA) | payer OTHER, SELFPAY | PROVIDERS: PCP Nurse Practitioner Family; Referring Provider Nurse Practitioner Family; Visit Provider Internal Medicine | DX: J44.9 Chronic obstructive pulmonary disease, unspecified (principal); Z87.891 Personal history of nicotine dependence; R06.00 Dyspnea, unspecified | CPT/HCPCS: 20553; 99214; J1010; J3490; Q3014 ==

== ENCOUNTER 2025-04-23 13:37 | Outpatient (CLI) | payer OTHER, SELFPAY ==
[2025-04-23 14:00] LABS: Hematocrit 40.0 % (37-53); Hemoglobin 12.30 g/dL (11.27-16.99); Mean Corpuscular HGB Conc 30.8 g/dL (30-55); Mean Corpuscular Hemoglobin 23.3 pg (27-33); Mean Corpuscular Volume 75.6 fl (82-101); Nucleated Red Blood Cells % 0 %; Platelet Count 217 10^3/cmm (157-399); Red Blood Count 5.29 10^6/uL (3.85-5.65); White Blood Count 12.97 10^3/uL (3.29-11.43)
== END 2025-04-23 13:38 | disposition home or self-care (01) ==
PROVIDERS: PCP Nurse Practitioner Family; Visit Provider Internal Medicine
DX: J44.9 Chronic obstructive pulmonary disease, unspecified (principal)
CPT/HCPCS: 36415; 85025

== ENCOUNTER 2025-05-08 09:05 | Outpatient (CLI) | payer OTHER, MEDICAID, SELFPAY ==
[2025-05-08 09:30] VITALS: O2SAT 92; O2SAT 94
== END 2025-05-08 09:06 | disposition home or self-care (01) ==
LOC: RT 09:09
PROVIDERS: PCP Nurse Practitioner Family; Visit Provider Internal Medicine
DX: R06.00 Dyspnea, unspecified (principal)
CPT/HCPCS: 94760

== ENCOUNTER → 2025-05-21 14:20 | Outpatient (BNVA) | payer OTHER, MEDICAID, SELFPAY | PROVIDERS: PCP Nurse Practitioner Family; Visit Provider Internal Medicine | DX: J44.9 Chronic obstructive pulmonary disease, unspecified (principal); I11.0 Hypertensive heart disease with heart failure; I50.9 Heart failure, unspecified; Z87.891 Personal history of nicotine dependence | CPT/HCPCS: 99214; Q3014 ==

== ENCOUNTER → 2025-06-30 14:58 | Outpatient (BNVA) | payer OTHER, MEDICAID, SELFPAY | PROVIDERS: PCP Nurse Practitioner Family; Visit Provider Internal Medicine | DX: I25.10 Atherosclerotic heart disease of native coronary artery without angina pectoris (principal); I48.91 Unspecified atrial fibrillation; I11.0 Hypertensive heart disease with heart failure; I50.9 Heart failure, unspecified; Z87.891 Personal history of nicotine dependence | CPT/HCPCS: 99214 ==